=== PATIENT | female | born 1940 | race Caucasian/White ===

== ENCOUNTER 2018-09-25 09:54 | Emergency (ER) | payer MEDICARE ==
[~2018-09-25] VITALS: Ht 165.1 cm; Wt 59.0 kg
[2018-09-25 10:55] LABS: HEMATOCRIT 24.7 % (36.0-47.0); HEMOGLOBIN 7.9 g/dL (12.0-15.5); RED BLOOD COUNT 2.63 x10^6/uL (3.50-5.40); RED CELL DISTRIBUTION WIDTH 23.5 % (11.5-14.5); WHITE BLOOD COUNT 11.9 x10^3/uL (4.0-11.0)
[2018-09-25 11:02] LABS: CALCIUM 9.2 mg/dL (8.5-10.1); CREATININE 0.6 mg/dL (0.6-1.0); GFR 96.4
--- NOTE | 2018-09-25 11:29 | PHYS DOC ---
Past History Past Medical History: GERD Past Surgical History: Other Alcohol Use: None Drug Use: None Adult General Chief Complaint Chief Complaint: ABDOMINAL PAIN HPI HPI Patient is a 78 year old F who presents with abnormal labs. Helena has had a low hemoglobin of the past several months. She was found to have a hemoglobin of 7.1 prior to transfer from [facility]. She is a resident at [facility]. She has no current complaints. Review of Systems Review of Systems Constitutional: Denies fever or chills [] Eyes: Denies change in visual acuity, redness, or eye pain [] HENT: Denies nasal congestion or sore throat [] Respiratory: Denies cough or shortness of breath [] Cardiovascular: No additional information not addressed in HPI [] GI: Denies abdominal pain, nausea, vomiting, bloody stools or diarrhea [] : Denies dysuria or hematuria [] Musculoskeletal: Denies back pain or joint pain [] Integument: Denies rash or skin lesions [] Neurologic: Denies headache, focal weakness or sensory changes [] Endocrine: Denies polyuria or polydipsia [] All other systems were reviewed and found to be within normal limits, except as documented in this note. Family History Family History No pertinent family medical history was reported Current Medications Current Medications Current medications were reviewed Allergies Allergies Allergies Coded Allergies Type Severity Reaction Last Updated Verified cephalexin Allergy Intermediate 09/25/18 Yes hydroxychloroquine Allergy Intermediate 09/25/18 Yes cefazolin Allergy Mild 09/25/18 Yes soap Allergy Unknown 09/25/18 Yes Physical Exam Physical Exam Constitutional: Well developed, well nourished, no acute distress, non-toxic appearance. [] HENT: Normocephalic, atraumatic Eyes: EOMI, conjunctiva normal, no discharge. [] Neck: Normal range of motion, no tenderness, supple, no stridor. [] Cardiovascular:Heart rate regular rhythm, Lungs & Thorax: Bilateral breath sounds clear to auscultation [] Abdomen: Bowel sounds normal, soft, no tenderness, no masses, no pulsatile masses. [] Skin: Warm, dry, no erythema, no rash. [] Extremities: No tenderness, no cyanosis, no clubbing, ROM intact, no edema. 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 [] Psychologic: Affect normal, judgement normal, mood normal. [] Current Patient Data Vital Signs Vital Signs Date Time Temp Pulse Resp B/P (MAP) Pulse Ox O2 Delivery O2 Flow Rate FiO2 09/25/18 10:59 97.8 99 18 95 Room Air Lab Results Laboratory Tests Test 09/25/18 10:38 White Blood Count 11.9 x10^3/uL (4.0-11.0) H Red Blood Count 2.63 x10^6/uL (3.50-5.40) L Hemoglobin 7.9 g/dL (12.0-15.5) L Hematocrit 24.7 % (36.0-47.0) L Mean Corpuscular Volume 94 fL (79-100) Mean Corpuscular Hemoglobin 30 pg (25-35) Mean Corpuscular Hemoglobin Concent 32 g/dL (31-37) Red Cell Distribution Width 23.5 % (11.5-14.5) H Platelet Count 497 x10^3/uL (140-400) H Sodium Level 140 mmol/L (136-145) Potassium Level 4.0 mmol/L (3.5-5.1) Chloride Level 107 mmol/L (98-107) Carbon Dioxide Level 26 mmol/L (21-32) Anion Gap 7 (6-14) Blood Urea Nitrogen 40 mg/dL (7-20) H Creatinine 0.6 mg/dL (0.6-1.0) Estimated GFR (Cockcroft-Gault) 96.4 Glucose Level 92 mg/dL (70-99) Calcium Level 9.2 mg/dL (8.5-10.1) EKG EKG [] Radiology/Procedures Radiology/Procedures [] Course & Med Decision Making Course & Med Decision Making Pertinent Labs and Imaging studies reviewed. (See chart for details) Helena's doctor was contacted by phone. An outpatient order for blood transfusion was placed. She was discharged in stable condition. She plans to go to an outpatient program at today where she will have a transfusion. Dragon Disclaimer Dragon Disclaimer This electronic medical record was generated, in whole or in part, using a voice recognition dictation system. Departure Departure: Impression: Primary Impression: Anemia Disposition: 01 HOME, SELF-CARE Condition: STABLE Referrals: KRYSTAL QUARLES (PCP) Patient Instructions: Anemia, FAQs Additional Instructions: The [facility] in the emergency department for abnormal labs. No emergency medical condition is final history physical exam. She was found to be anemic. Her primary care doctor was contacted by phone. An outpatient order for a blood transfusion was placed. She was discharged in stable condition to her outpatient appointment for blood transfusion. She was also advised to follow-up with her primary care doctor as needed further management. Problem Qualifiers Primary Impression: Anemia Anemia type: unspecified type Qualified Codes: D64.9 - Anemia, unspecified DEAN SETH MD Sep 25, 2018 11:29
[2018-09-25 12:07] VITALS: BP 109/57
== END 2018-09-25 12:57 | disposition home or self-care (01) ==
LOC: ER 09:54
DX: D64.9 Anemia, unspecified (principal); K21.9 Gastro-esophageal reflux disease without esophagitis; Z88.1 Allergy status to other antibiotic agents; Z88.8 Allergy status to other drugs, medicaments and biological substances
CPT/HCPCS: 36415; 80048; 85027; 99283

== ENCOUNTER 2019-01-02 12:51 | Inpatient (IN) | payer MEDICARE, OTHER ==
[~2019-01-02] VITALS: Ht 149.9 cm; Wt 65.1 kg
[2019-01-02] MEDS ORDERED: IV NORMAL SALINE 1,000ML 1,000 ML IV SCH (13:06)
[2019-01-02 13:44] LABS: BASO % 0 % (0-3); EOS % 0 % (0-3); HEMATOCRIT 24.7 % (36.0-47.0); HEMOGLOBIN 7.9 g/dL (12.0-15.5); LYMPH # 1.4 x10^3/uL (1.0-4.8); LYMPH % 9 % (24-48); MEAN CORPUSCULAR HEMOGLOBIN 28 pg (25-35); MEAN CORPUSCULAR HGB CONC 32 g/dL (31-37); MEAN CORPUSCULAR VOLUME 88 fL (79-100); MONO # 1.8 x10^3/uL (0.0-1.1); MONO % 12 % (0-9); NEUT # 12.6 x10^3uL (1.8-7.7); NEUT % 79 % (31-73); PLATELET COUNT 408 x10^3/uL (140-400); RED BLOOD COUNT 2.81 x10^6/uL (3.50-5.40); RED CELL DISTRIBUTION WIDTH 16.5 % (11.5-14.5); WHITE BLOOD COUNT 15.9 x10^3/uL (4.0-11.0)
[2019-01-02] MEDS ORDERED: PIPERACILLIN/TAZOBACTAM 3.375 GM in IV NORMAL SALINE 50ML 50 ML IV ONE (13:45)
[2019-01-02] MEDS ORDERED: VANCOMYCIN 1 GM in IV NORMAL SALINE 250ML 250 ML IV ONE (13:45)
--- NOTE | 2019-01-02 13:51 | PHYS DOC ---
Past History Past Medical History: Anemia, Bronchitis, CHF, COPD, Depression, Diabetes, DVT, GERD, Kidney Stones, Pneumonia Past Surgical History: Other Alcohol Use: None Drug Use: None Adult General Chief Complaint Chief Complaint: FEVER HPI HPI Patient is a 78-year-old female who presents from assisted facility with report of fever, cough and shortness of breath. Patient reportedly had a temperature over 101 yesterday but patient was not up to coming to the hospital. Today, patient's symptoms had worsened and staff had spoken with patient's provider and patient sent to emergency room for further evaluation. Patient did have blood work and a chest x-ray yesterday. Patient indicates that she has been getting some shortness of breath and states that her cough is been productive of green sputum. She also reports to chills and sweats. She denies any chest pain, abdominal pain, nausea or vomiting. Patient states that nothing is improving her symptoms. Review of Systems Review of Systems Constitutional: Positive fever and chills [] Respiratory: Positive productive cough and shortness of breath [] Cardiovascular: No additional information not addressed in HPI [] GI: Denies abdominal pain, nausea, vomiting or diarrhea [] Neurologic: Denies headache, focal weakness or sensory changes [] All other systems were reviewed and found to be within normal limits, except as documented in this note. Current Medications Current Medications Current Medications Medications (Trade) Dose Ordered Sig/Indy Start Time Stop Time Status Last Admin Dose Admin Sodium Chloride 1,000 ml @ 100 mls/hr Q10H 01/02/19 13:06 01/02/19 23:05 01/02/19 13:06 100 MLS/HR Allergies Allergies Allergies Coded Allergies Type Severity Reaction Last Updated Verified cephalexin Allergy Intermediate 09/25/18 Yes hydroxychloroquine Allergy Intermediate 09/25/18 Yes cefazolin Allergy Mild 09/25/18 Yes soap Allergy Unknown 09/25/18 Yes Physical Exam Physical Exam Constitutional: Well developed, well nourished, no acute distress, non-toxic appearance. [] HENT: Normocephalic, atraumatic, bilateral external ears normal, oropharynx moist, no oral exudates, nose normal. [] Eyes: PERRLA, EOMI, conjunctiva normal, no discharge. [] Neck: Normal range of motion, no tenderness, supple, no stridor. [] Cardiovascular: Regular rate and rhythm[] Lungs & Thorax: There are fine rhonchi noted bilaterally, primarily in the left lung base to auscultation [] Abdomen: Bowel sounds normal, soft, no tenderness. [] Skin: Warm, dry, no erythema, no rash. [] Extremities: No cyanosis, no clubbing, ROM intact. AKA is noted right lower extremity. [] Neurologic: Awake and alert, no focal deficits noted. [] Current Patient Data Vital Signs Vital Signs Date Time Temp Pulse Resp B/P (MAP) Pulse Ox O2 Delivery O2 Flow Rate FiO2 01/02/19 12:55 98.5 112 33 93 Room Air Lab Results Laboratory Tests Test 01/02/19 13:30 White Blood Count 15.9 x10^3/uL (4.0-11.0) H Red Blood Count 2.81 x10^6/uL (3.50-5.40) L Hemoglobin 7.9 g/dL (12.0-15.5) L Hematocrit 24.7 % (36.0-47.0) L Mean Corpuscular Volume 88 fL (79-100) Mean Corpuscular Hemoglobin 28 pg (25-35) Mean Corpuscular Hemoglobin Concent 32 g/dL (31-37) Red Cell Distribution Width 16.5 % (11.5-14.5) H Platelet Count 408 x10^3/uL (140-400) H Neutrophils (%) (Auto) 79 % (31-73) H Lymphocytes (%) (Auto) 9 % (24-48) L Monocytes (%) (Auto) 12 % (0-9) H Eosinophils (%) (Auto) 0 % (0-3) Basophils (%) (Auto) 0 % (0-3) Neutrophils # (Auto) 12.6 x10^3uL (1.8-7.7) H Lymphocytes # (Auto) 1.4 x10^3/uL (1.0-4.8) Monocytes # (Auto) 1.8 x10^3/uL (0.0-1.1) H Eosinophils # (Auto) 0.0 x10^3/uL (0.0-0.7) Basophils # (Auto) 0.0 x10^3/uL (0.0-0.2) Platelet Estimate Pending EKG EKG [] Radiology/Procedures Radiology/Procedures [] Impressions: Chest x-ray demonstrates left lower lobe infiltrate Course & Med Decision Making Course & Med Decision Making Pertinent Labs and Imaging studies reviewed. (See chart for details) [] Dragon Disclaimer Dragon Disclaimer This electronic medical record was generated, in whole or in part, using a voice recognition dictation system. Departure Departure: Impression: Primary Impression: Facility-acquired pneumonia Additional Impression: Influenza Disposition: 09 ADMITTED INPATIENT Admitting Physician: Naomi Alcantara Condition: IMPROVED Referrals: KRYSTAL QUARLES (PCP) Problem Qualifiers LACY VILLEGAS Jr. DO January 02, 2019 13:51
[2019-01-02 13:59] LABS: ALBUMIN 2.5 g/dL (3.4-5.0); ALBUMIN/GLOBULIN RATIO 0.5 (1.0-1.7); CALCIUM 9.1 mg/dL (8.5-10.1); CREATININE 0.7 mg/dL (0.6-1.0); GFR 80.7; POTASSIUM 3.8 mmol/L (3.5-5.1); TOTAL BILIRUBIN 0.4 mg/dL (0.2-1.0); TOTAL PROTEIN 7.5 g/dL (6.4-8.2)
[2019-01-02] MEDS ORDERED: IV NORMAL SALINE 250ML 250 ML ONE ×2 (13:59→14:09)
[2019-01-02] MEDS ORDERED: VANCOMYCIN 1 GM VIAL. ONE (14:00)
[2019-01-02] MEDS ORDERED: PIPERACILLIN/TAZOBACTAM 3.375 GM VIAL IV ONE (14:00)
[2019-01-02] MEDS ORDERED: IV NORMAL SALINE 50ML 50 ML ONE (14:00)
[2019-01-02 14:20] LABS: % SEGS 74 % (35-66)
[2019-01-02 14:21] LABS: % BANDS 10 % (0-9); % BASOS 0 % (0-3); % EOS 0 % (0-5); % LYMPHS 6 % (24-48); % MONOS 10 % (0-10); ANISOCYTOSIS PRESENT; HYPOCHROMIA PRESENT; PLT ESTIMATE INCREASED (ADEQUATE)
[2019-01-02 14:30] LABS: INFLUENZA A PATIENT POSITIVE (NEGATIVE); INFLUENZA B PATIENT POSITIVE (NEGATIVE)
[2019-01-02] MEDS ORDERED: ACETAMINOPHEN 325 MG TABLET PO PRN (15:15)
[2019-01-02 15:28] LABS: BILIRUBIN,URINE NEG (NEG); CLARITY,URINE CLOUDY; COLOR,URINE YELLOW; GLUCOSE,URINE NEG (NEG)
[2019-01-02 15:29] LABS: BACTERIA,URINE FEW /HPF (0-FEW); NITRITE,URINE NEG (NEG); SQUAMOUS EPITHELIAL CELL,UR OCC /LPF; UROBILINOGEN,URINE 0.2 mg/dL (0.2 mg/dL)
[2019-01-02] MEDS ORDERED: OSELTAMIVIR 75 MG CAPSULE PO ONE (15:30)
[2019-01-02 15:52] VITALS: BP 99/65
[2019-01-02] MEDS: IPRATRPIUM/ALBUTEROL 0.5/2.5MG 3 ML NEBU. NEB SCH ×2 (16:18→20:38)
[2019-01-02] MEDS ORDERED: VANCOMYCIN 500 MG in IV NORMAL SALINE 100ML 100 ML IV ONE (16:30)
[2019-01-02] MEDS: VANCOMYCIN PER PHARMACY MC PRN (17:12)
--- NOTE | 2019-01-02 17:17 | NUR ---
Pharmacy Vancomycin Dosing Note S:Consulted to monitor and dose vancomycin started 01/02/19. O:YORDY CALLOWAY is a 78 year old F with HCAP, . Height: 4 feet, 11 inches Weight: 64.531287 kg [place] Body Weight: 43.20 Adjusted Body Weight: 51.60 Dosing Weight: Actual Other Antibiotics: ZOSYN 3.375GM IB Q8H LABS: Last BUN: 45 Last Creatinine: 0.7 Creatinine Clearance: 38.14 Last WBC: 15.9 Vancomycin Dosing: Loading Dose: 1500 mg x1 Dosing Weight: Actual Target Trough: 15-20 POSITIVE FOR INFLUENZA A & B, ON TAMIFLU A: Based on: Actual weight, renal function and indication P: 1. Begin Vancomycin 1000 mg IV q24h 2. Follow up Trough level on 01/04/19 at 1230 3. Pharmacy will continue to monitor, follow and adjust therapy as needed. ANDREA SHERIFF, 01/02/19 [id number]
--- NOTE | 2019-01-02 17:29 | HP ---
ADMIT DATE: 01/02/2019 HISTORY OF PRESENT ILLNESS: The patient is a 78-year-old female patient, a resident at [facility], who apparently was diagnosed yesterday with pneumonia and was confirmed by chest x-ray and she has also leukocytosis. Her white cell count was up to 19,000, however, the patient refused to come to the hospital. She also had fever, cough with greenish sputum and shortness of breath as her symptoms worsened, she agreed to come to the hospital, was evaluated in the Emergency Room and her lab work showed again that her white cell count was high at 15,900, normochromic normocytic anemia. Her lactic acid was only 1.6. She was found to be positive for influenza A and B. Her urinalysis showed that she has only 5-10 wbc's and very few bacteria. Her chest x-ray was done, but was not read; however, her chest x-ray done at the senior living showed that she has chronic interstitial lung disease with superimposed left lower infiltrate, but no evidence of congestive heart failure and therefore, the patient was admitted with sepsis, left lower lobe pneumonia and influenza A and B was put in isolation. She was treated with IV fluid and was started on Tamiflu as well as vancomycin and Zosyn for healthcare-associated pneumonia. PAST MEDICAL HISTORY: Significant for rheumatoid arthritis, pulmonary fibrosis. She does have acute osteomyelitis of her femur, status post right above knee amputation, type 2 diabetes, normochromic normocytic anemia of chronic disease, vitamin D deficiency. She is known to have heart failure, chronic obstructive pulmonary disease, gastroesophageal reflux disease, severe deforming rheumatoid arthritis, age-related osteoporosis. She is known to have chronic osteomyelitis of her left leg, nephrolithiasis, obstructive and reflux uropathy, oropharyngeal dysphagia and difficulty walking, lack of coordination. She also has history of venous thrombosis and embolism. She is wheelchair bound. PAST SURGICAL HISTORY: Significant for bilateral cataract extraction. She has also right above-knee amputation. She has left hand surgery, laser photocoagulation and cholecystectomy. ALLERGIES: SHE IS ALLERGIC TO CEFAZOLIN, CEPHALEXIN, HYDROCHLOROQUINE AND SOAP. MEDICATIONS: She is currently on following medications: She is on oxygen at 2 liters by nasal cannula. She has artificial tears 1 drop to both eyes 4 times a day, aspirin 81 mg once a day. She is on Biotene dry mouth moisturizing solution, artificial saliva give one spray by mouth every 4 hours. She is on bisacodyl tablets 5 mg daily, Chloraseptic, sore throat, give 5 sprays by mouth every 2 hours as needed, Colace 100 mg twice a day. She is on DuoNeb 0.5-2.5 mg 3 mL by nebulizer 4 times a day. She is on ferrous sulfate 325 mg twice a day, Maalox regular strength she gets 30 mL every 4 hours as needed, multivitamin 1 tablet once a day, prednisone 5 mg 1 tablet by mouth once a day, Pro-Stat 30 mL by mouth 3 times a day, Protonix 40 mg once a day, Senna 1 tablet daily, Sensipar tablet 30 mg for cinacalcet 1 tablet twice a day, Tylenol 650 mg every 4 hours, vitamin D3 give 2000 international units by mouth once a day. FAMILY HISTORY: She has 2 sisters, one lives around here and one in [place]. One brother who is still alive, but does not keep in touch with them. SOCIAL HISTORY: She is , has 2 sons. She has never smoked, does not drink alcohol or use recreational drugs. REVIEW OF SYSTEMS: As per history of present illness. PHYSICAL EXAMINATION: GENERAL: On arrival to the Emergency Room, she was pale, but no jaundice, cyanosis, or thyromegaly. No jugular venous distension. No limb edema. VITAL SIGNS: Her heart rate was 112, blood pressure was 99/65, temperature was 98.5, respiratory rate was 33 and oxygen saturation was 93% on room air. HEAD, EYES, EARS, NOSE AND THROAT: Showed normocephalic, atraumatic. NECK: Supple. HEART: Showed normal first and second heart sounds with no gallop, rub or murmur. CHEST: Clear to auscultation. No crepitation or rhonchi. ABDOMEN: Distended, soft, nontender. No guarding or rigidity. No organomegaly. All hernial orifice are intact. Bowel sounds normal. NEUROLOGIC: She is hard of hearing, otherwise all cranial nerves intact. She moves her all extremities, although she has severe deforming rheumatoid arthritis, more so on the right hand than left. She has right above-knee amputation. She has an indwelling Buckner catheter and she has what seems to be chronic osteomyelitis of her left leg, although I do not have any clear cut. There is no sinuses and this was based on the information face sheet from the senior living as she was not on any antibiotics for that. The patient seems to be mostly wheelchair bound. LABORATORY DATA: On arrival showed that her white cell count was 15,900, hemoglobin 7.9, hematocrit 24.7, MCV 88 and platelet count of 408,000 with normal manual differential. Her serum sodium was 136, potassium 3.8, chloride 102, bicarbonate 23, anion gap of 11, BUN 45, creatinine 0.7, estimated GFR was 80 mL. Her glucose was 115, lactic acid was 1.6, calcium was 9.1. Total bilirubin, AST, ALT, alkaline phosphatase were normal. Total protein was 7.5, albumin was 2.5. Her urinalysis showed the urine was yellow, clear, cloudy with a pH of 5.5, specific gravity of 1.015. There was small amount of protein. The urine was negative for glucose, ketones, small amount of blood, negative for nitrite and has a trace leukocyte esterase, 1-2 rbc's, 5-10 wbc's, very few bacteria. Her influenza A and B were positive. She had a chest x-ray, which confirmed that she has left lower lobe pneumonia and chronic pulmonary fibrosis. ASSESSMENT: This is a 78-year-old female patient with severe deforming rheumatoid arthritis, who was admitted with community-acquired pneumonia. She also was found positive for influenza A and B. She has chronic pulmonary fibrosis likely due to underlying rheumatoid arthritis. PLAN: My plan is to continue with Tamiflu, continue with IV vancomycin and Zosyn and continue with all her other medications. We will follow her closely on a daily basis and decide the further management according to her response. JAYY SANTOS MD DR: SHWETA/yg JOB#: [id number] / [id number]
--- NOTE | 2019-01-02 17:34 | NUR ---
NURSING NOTE ADMIT PT ADMIT FROM ED VIA EMS TO ROOM 107 FOR INFLUENZA AND PNEUMONIA FROM [facility]. PT STATES SHE HAS BEEN SOB AND COUGHING UP PHLEGM. PT PLACED ON 2L OF OXYGEN AT THIS TIME. PT HAS WOUNDS, SEE WOUND ASSESSMENT. PT SETTLED IN ROOM. PHYSICIAN AT BEDSIDE DURING ADMISSION. NO COMPLICATIONS. KAILYN GALLO.
--- NOTE | 2019-01-02 17:36 | NUR ---
NURSING NOTE CONSULT WOUND CARE ORDERS PLACED FOR WOUND CARE CONSULT. KAILYN GALLO.
[2019-01-02] MEDS: IV NORMAL SALINE 1,000ML 1,000 ML IV SCH (17:47)
[2019-01-02] MEDS ORDERED: BISACODYL TAB 5 MG TABLET.DR. PO PRN (18:00)
[2019-01-02] MEDS ORDERED: SALIVA STIMULANT AGENT 44ML SPRAY BOTTLE. MM PRN (18:00)
[2019-01-02] MEDS ORDERED: CHOL10003 PO (18:04)
[2019-01-02] MEDS ORDERED: FERR325T14 PO (18:04)
[2019-01-02] MEDS ORDERED: SALI44.3 MM (18:04)
[2019-01-02] MEDS ORDERED: DOCU-109 PO (18:04)
[2019-01-02] MEDS ORDERED: ACET325T9 PO (18:04)
[2019-01-02] MEDS ORDERED: DEXT15DR5 EACHEYE (18:04)
[2019-01-02] MEDS ORDERED: ASPI-630 PO (18:04)
[2019-01-02] MEDS ORDERED: PANT40TA3 PO (18:04)
[2019-01-02] MEDS ORDERED: PRED2.5T PO (18:04)
[2019-01-02] MEDS ORDERED: SENN-80 PO (18:04)
[2019-01-02] MEDS ORDERED: MULT-246 PO (18:04)
[2019-01-02] MEDS ORDERED: BISA5TAB4 PO (18:04)
--- NOTE | 2019-01-02 18:23 | NUR ---
NURSING NOTE CODE STATUS [facility] IS FAXING DPOA PAPERWORK. PT IS A DNR. KAILYN GALLO.
--- NOTE | 2019-01-02 18:45 | RAD ---
PORTABLE CHEST 1V History: Cough, congestion. No prior study for comparison. There is an oblique fracture of the right proximal humerus, probably not acute. There is also an apparent fracture deformity of the left proximal humerus. Degenerative changes of both shoulders with rotator cuff arthropathy. Low lung volumes. There is patchy infiltrates/edema in both lungs greatest in the left lung base. Aortic calcification. Heart size not definitely enlarged accounting for portable technique. No evidence of pneumothorax or large effusion but there may be a small left effusion. IMPRESSION: Bilateral infiltrates/edema in both lungs, but greatest in the left lung base. Proximal humeral fractures, likely not acute. Electronically signed by: Shar Golden MD (01/02/2019 6:42 PM) [facility]
[2019-01-02 19:13] VITALS: BP 93/54
[2019-01-02] MEDS: SENNOSIDES 8.6 MG TABLET PO SCH (21:00)
[2019-01-02] MEDS: PIPERACILLIN/TAZOBACTAM 3.375 GM in IV NORMAL SALINE 50ML 50 ML IV SCH (22:15)
[2019-01-02] MEDS: LACTOBACILLUS RHAMNOSUS GG 1 CAPSULE. PO SCH (22:16)
[2019-01-02] MEDS: POLYVINYL ALCOHOL 1.4% OPHTH SOLUTION 15ML BOTTLE. OU SCH (22:16)
[2019-01-02] MEDS: FERROUS SULFATE 325 MG TABLET. PO SCH (22:16)
[2019-01-02] MEDS: OSELTAMIVIR 75 MG CAPSULE PO SCH (22:16)
[2019-01-02] MEDS: ACETAMINOPHEN 325 MG TABLET PO PRN (22:16)
[2019-01-02 23:01] VITALS: BP 100/63
[2019-01-03] VITALS (9 sets, daily range): BP systolic 99–114; BP diastolic 48–65
--- NOTE | 2019-01-03 04:12 | NUR ---
NURSING: I HAVE REVIEWED AND AGREE WITH SN LAURIE'S ASSESSMENT DOCUMENTATION.
[2019-01-03] MEDS: IPRATRPIUM/ALBUTEROL 0.5/2.5MG 3 ML NEBU. NEB SCH ×4 (05:41→19:23)
[2019-01-03] MEDS: PIPERACILLIN/TAZOBACTAM 3.375 GM in IV NORMAL SALINE 50ML 50 ML IV SCH ×3 (05:58→23:09)
[2019-01-03] MEDS: IV NORMAL SALINE 1,000ML 1,000 ML IV SCH ×2 (06:00→11:55)
[2019-01-03 06:29] LABS: BASO % 0 % (0-3); EOS % 1 % (0-3); HEMATOCRIT 21.9 % (36.0-47.0); HEMOGLOBIN 7.1 g/dL (12.0-15.5); LYMPH % 21 % (24-48); MEAN CORPUSCULAR HEMOGLOBIN 29 pg (25-35); MEAN CORPUSCULAR HGB CONC 32 g/dL (31-37); MEAN CORPUSCULAR VOLUME 88 fL (79-100); MONO # 1.2 x10^3/uL (0.0-1.1); MONO % 13 % (0-9); NEUT # 6.1 x10^3uL (1.8-7.7); NEUT % 65 % (31-73); PLATELET COUNT 357 x10^3/uL (140-400); RED BLOOD COUNT 2.49 x10^6/uL (3.50-5.40); RED CELL DISTRIBUTION WIDTH 16.6 % (11.5-14.5); WHITE BLOOD COUNT 9.4 x10^3/uL (4.0-11.0)
[2019-01-03 06:59] LABS: ALBUMIN/GLOBULIN RATIO 0.5 (1.0-1.7); CALCIUM 8.9 mg/dL (8.5-10.1); CREATININE 0.6 mg/dL (0.6-1.0); GFR 96.4; POTASSIUM 3.8 mmol/L (3.5-5.1); TOTAL BILIRUBIN 0.5 mg/dL (0.2-1.0); TOTAL PROTEIN 6.4 g/dL (6.4-8.2)
[2019-01-03] MEDS: POLYVINYL ALCOHOL 1.4% OPHTH SOLUTION 15ML BOTTLE. OU SCH ×4 (08:16→21:00)
[2019-01-03] MEDS: ASPIRIN 81 MG TAB.CHEW PO SCH (08:16)
[2019-01-03] MEDS: LACTOBACILLUS RHAMNOSUS GG 1 CAPSULE. PO SCH ×2 (08:16→21:48)
[2019-01-03] MEDS: DOCUSATE SODIUM 100 MG CAPSULE PO SCH ×2 (08:16→08:33)
[2019-01-03] MEDS: FERROUS SULFATE 325 MG TABLET. PO SCH ×2 (08:18→21:48)
[2019-01-03] MEDS: MULTIVITAMIN with MINERAL TABLET. PO SCH (08:19)
[2019-01-03] MEDS: OSELTAMIVIR 75 MG CAPSULE PO SCH ×2 (08:19→21:48)
[2019-01-03] MEDS: CHOLECALCIFEROL (VITAMIN D3) 1,000 UNIT TABLET PO SCH (08:19)
[2019-01-03] MEDS: SENNOSIDES 8.6 MG TABLET PO SCH ×2 (08:19→21:00)
--- NOTE | 2019-01-03 08:43 | NUR ---
NURSING NOTE DIET BREAKFAST: ADD OATMEAL, CREAM OF WHEAT, YOGURT, APPLESAUCE, NECTAR THICK WATER AND APPLE JUICE. LUNCH: ADD TOMATO SOUP, CARROTS, JELLO, NECTAR THICK WATER AND APPLE JUICE. DINNER: ADD APPLE SAUCE, CREAM OF CHICKEN, JELLO, AND NECTAR THICK WATER AND APPLE JUICE.
[2019-01-03] MEDS ORDERED: predniSONE 5 MG TABLET PO SCH (09:00)
[2019-01-03] MEDS ORDERED: PANTOPRAZOLE 40 MG TABLET. PO SCH (09:00)
[2019-01-03] MEDS: VANCOMYCIN 1 GM in IV NORMAL SALINE 250ML 250 ML IV SCH (11:56)
[2019-01-03] MEDS: ACETAMINOPHEN 325 MG TABLET PO PRN ×2 (15:26→21:49)
[2019-01-03 15:28] LABS: HEMATOCRIT 20.6 % (36.0-47.0)
[2019-01-03 15:31] LABS: HEMOGLOBIN 6.7 g/dL (12.0-15.5)
--- NOTE | 2019-01-03 15:31 | NUR ---
NURSING NOTE CRITICAL LAB PT HGB 6.7. ORDERS OBTAINED [address] OF BLOOD PER DR SANTOS. KAILYN GALLO.
--- NOTE | 2019-01-03 16:00 | RAD ---
Left tibia and fibula, 2 views, 01/03/2019: HISTORY: Osteomyelitis The bony structures are demineralized. There are extensive soft tissue calcifications. These are predominantly subcutaneous, although extensive arterial calcifications are also evident. No fracture or destructive bony lesion is seen. There are degenerative changes at the knee joint and the ankle. IMPRESSION: 1. Demineralization. 2. No acute bony abnormality is detected. 3. Extensive soft tissue calcifications many of which are subcutaneous. This is a nonspecific finding but can be idiopathic or seen with various entities including dermatomyositis or chronic venous insufficiency. Electronically signed by: Cole Crawley MD (01/03/2019 3:58 PM) [facility]
[2019-01-03] MEDS: HYDROCORTISONE SOD SUCC/PF 100 MG/2 ML VIAL. IV SCH (23:09)
[2019-01-04] VITALS: BP 103/59
--- NOTE | 2019-01-04 00:02 | NUR ---
Blood transfusion started at 2021. Tubing primed with Normal Saline and then primed with blood. Transfusion started at 100ml/hr, patient monitored closely x15 minutes. No reaction noted, transfusion increased to 125ml/hr. Vital signs assessed @ 2037, 2137, and 2237; vital signs stable. Transfusion completed at 2301, patient tolerated transfusion well. One hour post transfusion vital signs assessed and stable.
[2019-01-04 04:41] VITALS: BP 105/57
[2019-01-04] MEDS: IPRATRPIUM/ALBUTEROL 0.5/2.5MG 3 ML NEBU. NEB SCH ×4 (04:45→20:00)
--- NOTE | 2019-01-04 05:47 | PN ---
DATE: 01/03/2019 SUBJECTIVE: The patient is resting, slightly propped up in bed, in no apparent respiratory distress. She definitely seems to be more comfortable than yesterday. On questioning her, she said that she is definitely feeling much better than yesterday. PHYSICAL EXAMINATION: GENERAL: When I examined her, she was pale. No jaundice, cyanosis, or thyromegaly. No jugular venous distension. No lower limb edema. VITAL SIGNS: Her heart rate was 101, blood pressure was 101/48, temperature was 99.4, respiratory rate was 22, and oxygen saturation was 97% on 1 liter of oxygen. HEAD, EYES, EARS, NOSE, AND THROAT: Normocephalic, atraumatic. NECK: Supple. HEART: Showed normal first and second sounds. No gallop, rub, or murmur. CHEST: Shows central trachea, equally reduced expansion, reduced air entry, vesicular sounds with bilateral early coarse inspiratory crackles. I could not appreciate any rhonchi. ABDOMEN: Distended, soft, nontender. NEUROLOGIC: She is sleepy, but arousable. All cranial nerves intact. She moves upper extremities to much good extent than lower extremities. She has right above-knee amputation. She has wounds on her left rico, questionable osteomyelitis as per jail notes. Her intake over the last 24 hours and output are incompletely recorded. LABORATORY DATA: Her lab work this morning showed her serum sodium to be 141, potassium 3.8, chloride 108, bicarbonate 24, anion gap of 9, BUN 30, creatinine 0.6, estimated GFR was 96 mL per minute. Her glucose was 82. Her lactic acid was only 1.6, calcium was 8.9. Total bilirubin, AST, ALT, alkaline phosphatase were normal. Total protein was 6.4, albumin 2. Her white cell count is down to 9400, hemoglobin 7.1, hematocrit 21.9, MCV 88, and platelet count of 257,000 with normal manual differential. Urinalysis showed the urine was yellow, cloudy with pH of 5.5, specific gravity 1.015. There was small amount of protein. The urine was negative for glucose, ketones, small amount of blood, negative for nitrite, negative bilirubin, and leukocyte esterase was trace of that. However, there are 1-2 RBCs, 5-10 WBCs, and very few bacteria. Her influenza A and B are negative. Her blood cultures still showed no growth after 24 hours. ASSESSMENT: 1. ____. 2. Influenza A and B. 3. Pulmonary fibrosis, likely due to underlying rheumatoid arthritis. 4. Severe deforming rheumatoid arthritis. 5. Chronic obstructive pulmonary disease. 6. She apparently has also oropharyngeal dysphagia. PLAN: My plan is to increase her steroids to stress dose. Continue the IV fluid. Continue with IV antibiotic. Continue Tamiflu. We will check her H and H, and if the hemoglobin is 7 or less than 7, we will transfuse 1 unit packed RBCs. I did also order an x-ray of her left tibia and fibula as it was not clear whether the patient has an infection there or in the right tibia and fibula that resulted in right above-knee amputation. JAYY SANTOS MD DR: SHWETA/yg JOB#: [id number] / [id number]
[2019-01-04] MEDS: PIPERACILLIN/TAZOBACTAM 3.375 GM in IV NORMAL SALINE 50ML 50 ML IV SCH ×3 (06:17→22:16)
[2019-01-04 06:20] LABS: HEMOGLOBIN 7.7 g/dL (12.0-15.5); MEAN CORPUSCULAR HEMOGLOBIN 28 pg (25-35); MEAN CORPUSCULAR HGB CONC 32 g/dL (31-37); MEAN CORPUSCULAR VOLUME 87 fL (79-100); PLATELET COUNT 362 x10^3/uL (140-400); RED BLOOD COUNT 2.75 x10^6/uL (3.50-5.40); RED CELL DISTRIBUTION WIDTH 17.2 % (11.5-14.5); WHITE BLOOD COUNT 9.2 x10^3/uL (4.0-11.0)
[2019-01-04 06:31] LABS: ALBUMIN 1.9 g/dL (3.4-5.0); ALBUMIN/GLOBULIN RATIO 0.4 (1.0-1.7); C REACTIVE PROTEIN 160.8 mg/L (0-3.3); CALCIUM 9.3 mg/dL (8.5-10.1); CREATININE 0.6 mg/dL (0.6-1.0); GFR 96.4; TOTAL BILIRUBIN 0.4 mg/dL (0.2-1.0); TOTAL PROTEIN 6.4 g/dL (6.4-8.2)
[2019-01-04] MEDS: ACETAMINOPHEN 325 MG TABLET PO PRN (06:33)
[2019-01-04 07:27] LABS: SEDIMENTATION RATE > 130 (0-25)
[2019-01-04] MEDS: HYDROCORTISONE SOD SUCC/PF 100 MG/2 ML VIAL. IV SCH ×2 (08:19→22:16)
[2019-01-04] MEDS: LANSOPRAZOLE 30 MG TAB.RAP.DR PO SCH (08:19)
[2019-01-04] MEDS: MULTIVITAMIN with MINERAL TABLET. PO SCH (08:20)
[2019-01-04] MEDS: CHOLECALCIFEROL (VITAMIN D3) 1,000 UNIT TABLET PO SCH (08:20)
[2019-01-04] MEDS: OSELTAMIVIR 75 MG CAPSULE PO SCH ×2 (08:20→22:17)
[2019-01-04] MEDS: ASPIRIN 81 MG TAB.CHEW PO SCH (08:20)
[2019-01-04] MEDS: FERROUS SULFATE 325 MG TABLET. PO SCH ×2 (08:20→22:17)
[2019-01-04] MEDS: LACTOBACILLUS RHAMNOSUS GG 1 CAPSULE. PO SCH ×2 (08:20→22:17)
[2019-01-04] MEDS: DOCUSATE SODIUM 100 MG CAPSULE PO SCH (08:23)
[2019-01-04] MEDS: SENNOSIDES 8.6 MG TABLET PO SCH ×2 (08:24→21:00)
[2019-01-04] MEDS: POLYVINYL ALCOHOL 1.4% OPHTH SOLUTION 15ML BOTTLE. OU SCH ×4 (08:38→21:50)
--- NOTE | 2019-01-04 09:33 | NUR ---
Wound Care Wound care consult for LLE and L buttock wounds. Pt has multiple small openings on anterior LLE that have mild odor and scant drainage and exposed bone. Cleansed area and painted with Betadine, covered with ABD and Kerlix. Recommend to change every other day. L buttock has stage III PU, packed with Aquacel Ag rope and covered with foam and Tegaderm. No other wounds noted on full skin inspection. WC will continue to follow for possible changes.
[2019-01-04] MEDS ORDERED: FUROSEMIDE 20 MG/2 ML VIAL IVP ONE (10:00)
[2019-01-04 11:19] VITALS: BP 109/62
[2019-01-04] MEDS: VANCOMYCIN 1 GM in IV NORMAL SALINE 250ML 250 ML IV SCH ×2 (13:00→13:25)
[2019-01-04 13:06] LABS: VANC TR 9.3 mcg/mL (10.0-20.0)
[2019-01-04] MEDS: VANCOMYCIN PER PHARMACY MC PRN (14:09)
--- NOTE | 2019-01-04 14:09 | NUR ---
Pharmacy Vancomycin Dosing Note S:Consulted to monitor and dose vancomycin started 01/02/19. O:YORDY CALLOWAY is a 78 year old F with HCAP Height: 4 feet, 11 inches Weight: 66.071649 kg [place] Body Weight: 43.20 Adjusted Body Weight: 51.60 Dosing Weight: Actual Other Antibiotics: ZOSYN 3.375GM IB Q8H LABS: Last BUN: 21 Last Creatinine: 0.6 Creatinine Clearance: 38 Last WBC: 9.2 GFR=96.4 Microbiology: Sputum culture growing gram positive cocci and gram negative rods Drug Levels: Last Trough level: 9.3 on 01/04/19 at 1230 Last dose given 01/03/19 at 1300 Vancomycin Dosing: Loading Dose: 1500 mg x1 Dosing Weight: Actual Target Trough: 15-20 POSITIVE FOR INFLUENZA A & B, ON TAMIFLU A: Based on the trough, we will change the frequency to q12hrs. P: 1. Change Vancomycin to 1000mg IV q12h 2. Follow up Trough level on 01/06/19 at 0030 3. Pharmacy will continue to monitor, follow and adjust therapy as needed. HEMANT HIGHTOWER RPH 01/04/19 [id number]
[2019-01-04 15:43] VITALS: BP 93/51
[2019-01-04] MEDS ORDERED: FUROSEMIDE 40 MG/4 ML VIAL IVP ONE (18:45)
[2019-01-04 19:01] VITALS: BP 105/58
[2019-01-04 22:39] VITALS: BP 90/46
[2019-01-05] MEDS: VANCOMYCIN 1 GM in IV NORMAL SALINE 250ML 250 ML IV SCH ×2 (01:07→13:22)
--- NOTE | 2019-01-05 01:40 | PN ---
DATE: 01/04/2019 SUBJECTIVE: A 78-year-old female in with pneumonia and influenza, both A and B. elevated white count of over approximately 16,000. The patient is still in some mild respiratory distress, although she seems to be improving in terms of her heart rate coming down and her temperature stabilizing. The patient is alert, has difficulty talking because of shortness of breath. OBJECTIVE: VITAL SIGNS: Blood pressure 93/51, respiratory rate 22, pulse 73, afebrile, presently on 2 liters at 98%. GENERAL: The patient is alert and oriented. LUNGS: Diminished throughout with marked rattling throughout, but clear. CARDIOVASCULAR: Tachycardic at times and then regular sinus rhythm. ABDOMEN: Protuberant, soft, apparently had a bowel movement yesterday. EXTREMITIES: No clubbing or cyanosis. Trace edema noted. The patient is arousable little bit more apparently from previous time. She has a right [id number] amputation as well. She has wounds on her left rico, questionable osteomyelitis per retirement. LABORATORY DATA: The patient's hemoglobin and hematocrit is 7.7 and 24. White count 9.2 down from 16. The patient's electrolytes are basically stable. She has a BNP of over 10,000. The patient on Tamiflu and Zosyn. Otherwise, as noted, the patient was alert. In any case, the patient's labs are improved as noted above. IMPRESSION: Pneumonia, acute respiratory failure, influenza A and B, sepsis, pulmonary fibrosis, likely underlying rheumatoid arthritis, possible congestive heart failure, acute on top of chronic congestive heart failure, chronic obstructive pulmonary disease, possible dysphagia, possible aspiration. PLAN: Continue with IV antibiotic therapy. May have to change her fluids since her BNP is so elevated and make further evaluation on her as indicated as we progress with these multiple medical issues. DEAN COATES MD DR: MICKEY/yg JOB#: [id number] / [id number]
[2019-01-05] MEDS: PIPERACILLIN/TAZOBACTAM 3.375 GM in IV NORMAL SALINE 50ML 50 ML IV SCH ×3 (05:07→21:14)
[2019-01-05] MEDS: IPRATRPIUM/ALBUTEROL 0.5/2.5MG 3 ML NEBU. NEB SCH ×4 (05:10→20:03)
[2019-01-05 05:41] VITALS: BP 110/64
[2019-01-05 05:46] LABS: BASO % 0 % (0-3); EOS % 0 % (0-3); HEMATOCRIT 23.9 % (36.0-47.0); LYMPH # 1.2 x10^3/uL (1.0-4.8); LYMPH % 16 % (24-48); MEAN CORPUSCULAR HEMOGLOBIN 29 pg (25-35); MEAN CORPUSCULAR HGB CONC 34 g/dL (31-37); MEAN CORPUSCULAR VOLUME 86 fL (79-100); MONO # 0.4 x10^3/uL (0.0-1.1); MONO % 6 % (0-9); NEUT # 5.8 x10^3uL (1.8-7.7); NEUT % 79 % (31-73); PLATELET COUNT 356 x10^3/uL (140-400); RED BLOOD COUNT 2.78 x10^6/uL (3.50-5.40); RED CELL DISTRIBUTION WIDTH 17.3 % (11.5-14.5); WHITE BLOOD COUNT 7.4 x10^3/uL (4.0-11.0)
[2019-01-05 05:54] LABS: CALCIUM 9.4 mg/dL (8.5-10.1); CREATININE 0.7 mg/dL (0.6-1.0); GFR 80.7; POTASSIUM 3.2 mmol/L (3.5-5.1)
[2019-01-05] MEDS: POLYVINYL ALCOHOL 1.4% OPHTH SOLUTION 15ML BOTTLE. OU SCH ×4 (09:00→20:32)
[2019-01-05] MEDS: DOCUSATE SODIUM 100 MG CAPSULE PO SCH (09:00)
[2019-01-05] MEDS: SENNOSIDES 8.6 MG TABLET PO SCH ×2 (09:00→18:51)
[2019-01-05] MEDS: CHOLECALCIFEROL (VITAMIN D3) 1,000 UNIT TABLET PO SCH (09:09)
[2019-01-05] MEDS: OSELTAMIVIR 75 MG CAPSULE PO SCH ×2 (09:09→20:31)
[2019-01-05] MEDS: ASPIRIN 81 MG TAB.CHEW PO SCH (09:09)
[2019-01-05] MEDS: MULTIVITAMIN with MINERAL TABLET. PO SCH (09:09)
[2019-01-05] MEDS: LACTOBACILLUS RHAMNOSUS GG 1 CAPSULE. PO SCH ×2 (09:09→20:31)
[2019-01-05] MEDS: HYDROCORTISONE SOD SUCC/PF 100 MG/2 ML VIAL. IV SCH ×2 (09:10→20:31)
[2019-01-05] MEDS: LANSOPRAZOLE 30 MG TAB.RAP.DR PO SCH (09:10)
[2019-01-05] MEDS: FERROUS SULFATE 325 MG TABLET. PO SCH ×2 (09:10→20:31)
[2019-01-05 11:00] VITALS: BP 98/51
[2019-01-05 15:12] VITALS: BP 106/54
[2019-01-05] MEDS ORDERED: ELECTROLYTE (NON-ICU) PROTOCOL MC PRN (18:30)
[2019-01-05 19:29] VITALS: BP 108/63
[2019-01-05] MEDS ORDERED: POTASSIUM CHLORIDE 8 MEQ TABLET.ER. PO ONE (20:15)
[2019-01-05] MEDS ORDERED: POTASSIUM CHLORIDE 20 MEQ/15 ML ORAL LIQUID. FT ONE (20:30)
[2019-01-05] MEDS ORDERED: POTASSIUM CHLORIDE 20 MEQ TABLET.ER. PO ONE (20:30)
[2019-01-05] MEDS ORDERED: methylPREDNISolone SOD SUCC PF 40 MG/ML VIAL. IV SCH (21:00)
--- NOTE | 2019-01-05 21:19 | NUR ---
Went over plan of care with patient, patient voiced understanding. Holding HS senna due to patient having constant stools, not liquid but soft. Patient is being turned q2 hours. Call light within reach. WCTM.
[2019-01-05 22:03] VITALS: BP 114/57
[2019-01-05 22:44] LABS: FECAL OB PT POSITIVE (NEG)
[2019-01-06] MEDS: VANCOMYCIN 1 GM in IV NORMAL SALINE 250ML 250 ML IV SCH (01:00)
[2019-01-06 01:11] LABS: VANC TR 21.3 mcg/mL (10.0-20.0)
--- NOTE | 2019-01-06 01:45 | PN ---
DATE: SUBJECTIVE: A 78-year-old female patient in with pneumonia and influenza, both A and B, elevated white count, severe respiratory distress, hypotension. Initial white count of over approximately 16,000. The patient states that she is feeling better overall and making fairly good progress as far as her overall age and underlying debilitating condition. The patient basically shows evidence of an elevated BNP of 10,000, low iron of 19, potassium is down and that all need to be rectified as well. The patient otherwise continues on her Tamiflu as well as other antibiotics including the vancomycin and Zosyn and continues to make good progress overall there. The patient in turn notes that she is feeling better. OBJECTIVE: VITAL SIGNS: Blood pressure 106/50, respiratory rate 22, pulse 80, afebrile, 2 liters at 97%. HEENT: The patient's head was atraumatic, normocephalic. Eyes: PERRLA without jaundice. LUNGS: Still coarse, but much improved, more movement of air than was previously the day before. CARDIOVASCULAR: Regular sinus rhythm, S1, S2, without murmur. ABDOMEN: Soft, nontender. EXTREMITIES: No clubbing, cyanosis, or edema. NEUROLOGIC: The patient seems to be a little bit more energetic. She has a right [id number] amputation and we will continue to be monitored there. As noted on the labs earlier, her hemoglobin has stayed up from the previous 6.7, is still around 8 and 23. She has iron deficiency as well as 19. Other body sources show MRSA screen, but apparently the fecal Hemoccult have been come back. We are using SCDs for DVT prophylaxis. Continue to monitor that. IMPRESSION: Sepsis, influenza B, acute respiratory distress secondary to pneumonia of unspecified etiology, chronic obstructive pulmonary disease secondary to infection, iron deficiency anemia. PLAN: The patient will continue with IV antibiotic therapy, Tamiflu and iron supplementation. The patient also has significant vascular calcification per x-ray. DEAN COATES MD DR: MICKEY/yg JOB#: [id number] / [id number]
[2019-01-06] MEDS: VANCOMYCIN PER PHARMACY MC PRN ×2 (03:27→14:34)
--- NOTE | 2019-01-06 03:29 | NUR ---
Pharmacy Vancomycin Dosing Note S:Consulted to monitor and dose vancomycin started 01/02/19. O:YORDY CALLOWAY is a 78 year old F with HCAP, . Height: 4 feet, 11 inches Weight: 65.876435 kg [place] Body Weight: 43.20 Adjusted Body Weight: 52.08 Dosing Weight: Actual Other Antibiotics: ZOSYN 3.375GM IB Q8H LABS: Last BUN: 22 Last Creatinine: 0.7 Creatinine Clearance: 38 Last WBC: 7.4 Last Procalcitonin: Tmax (past 24 hours): Microbiology: I/O: 2278/1300 Drug Levels: Last Trough level: 21.3 on 01/06/19 at 0045 Last dose given 01/05/19 at 1322 Vancomycin Dosing: Loading Dose: Dosing Weight: Actual Target Trough: 15-20 POSITIVE FOR INFLUENZA A & B, ON TAMIFLU A: Based on: Trough(H), Updated Actual Wt and Crcl P: 1. 01/06/19 0100 Vancomycin 1000 mg IV q12h HELD VANCOMYCIN DOSING 2. Follow up Trough level on 01/06/19 at 1300 3. Pharmacy will continue to monitor, follow and adjust therapy as needed. MACKENZIE DUDLEY RPH, 01/06/19 0329 Signed: 01/06/19 at 0332 by MACKENZIE DUDLEY RPH PHA
[2019-01-06] MEDS: IPRATRPIUM/ALBUTEROL 0.5/2.5MG 3 ML NEBU. NEB SCH ×4 (04:48→21:00)
[2019-01-06 05:23] VITALS: BP 143/67
[2019-01-06] MEDS: PIPERACILLIN/TAZOBACTAM 3.375 GM in IV NORMAL SALINE 50ML 50 ML IV SCH ×3 (06:00→21:24)
[2019-01-06 06:56] LABS: BASO % 0 % (0-3); EOS % 0 % (0-3); HEMATOCRIT 23.5 % (36.0-47.0); HEMOGLOBIN 7.6 g/dL (12.0-15.5); LYMPH # 1.3 x10^3/uL (1.0-4.8); LYMPH % 19 % (24-48); MEAN CORPUSCULAR HEMOGLOBIN 28 pg (25-35); MEAN CORPUSCULAR HGB CONC 33 g/dL (31-37); MEAN CORPUSCULAR VOLUME 86 fL (79-100); MONO # 0.7 x10^3/uL (0.0-1.1); MONO % 10 % (0-9); NEUT # 4.9 x10^3uL (1.8-7.7); NEUT % 71 % (31-73); PLATELET COUNT 406 x10^3/uL (140-400); RED BLOOD COUNT 2.73 x10^6/uL (3.50-5.40); RED CELL DISTRIBUTION WIDTH 17.6 % (11.5-14.5); WHITE BLOOD COUNT 6.9 x10^3/uL (4.0-11.0)
[2019-01-06 07:07] LABS: CALCIUM 9.5 mg/dL (8.5-10.1); CREATININE 0.6 mg/dL (0.6-1.0); GFR 96.4; POTASSIUM 3.3 mmol/L (3.5-5.1)
[2019-01-06] MEDS ORDERED: PANTOPRAZOLE 40 MG TABLET. PO SCH (07:30)
[2019-01-06 07:49] LABS: % BANDS 2 % (0-9); % BASOS 0 % (0-3); % EOS 0 % (0-5); % LYMPHS 23 % (24-48); % MONOS 2 % (0-10); % SEGS 73 % (35-66); ANISOCYTOSIS PRESENT; PLATELET CLUMP PRESENT; PLT ESTIMATE INCREASED (ADEQUATE)
[2019-01-06] MEDS ORDERED: FERROUS SULFATE 325 MG TABLET. PO SCH (08:00)
[2019-01-06] MEDS: DOCUSATE SODIUM 100 MG CAPSULE PO SCH (09:00)
[2019-01-06] MEDS: POLYVINYL ALCOHOL 1.4% OPHTH SOLUTION 15ML BOTTLE. OU SCH ×4 (09:00→20:09)
[2019-01-06] MEDS: SENNOSIDES 8.6 MG TABLET PO SCH ×2 (09:00→20:08)
[2019-01-06] MEDS: POTASSIUM CHLORIDE 20 MEQ/15 ML ORAL LIQUID. PO SCH ×2 (09:37→20:09)
[2019-01-06] MEDS: MULTIVITAMIN with MINERAL TABLET. PO SCH (09:37)
[2019-01-06] MEDS: OSELTAMIVIR 75 MG CAPSULE PO SCH ×2 (09:37→20:08)
[2019-01-06] MEDS: FERROUS SULFATE 325 MG TABLET. PO SCH ×2 (09:37→20:08)
[2019-01-06] MEDS: CHOLECALCIFEROL (VITAMIN D3) 1,000 UNIT TABLET PO SCH (09:38)
[2019-01-06] MEDS: HYDROCORTISONE SOD SUCC/PF 100 MG/2 ML VIAL. IV SCH ×2 (09:38→20:09)
[2019-01-06] MEDS: LACTOBACILLUS RHAMNOSUS GG 1 CAPSULE. PO SCH ×2 (09:38→20:08)
[2019-01-06] MEDS: ASPIRIN 81 MG TAB.CHEW PO SCH (09:38)
[2019-01-06] MEDS: LANSOPRAZOLE 30 MG TAB.RAP.DR PO SCH (09:38)
[2019-01-06 10:30] VITALS: BP 107/50
[2019-01-06 13:24] LABS: VANC TR 15.9 mcg/mL (10.0-20.0)
--- NOTE | 2019-01-06 14:37 | NUR ---
Pharmacy Vancomycin Dosing Note S:Consulted to monitor and dose vancomycin started 01/02/19. O:YORDY CALLOWAY is a 78 year old F with HCAP, . Height: 4 feet, 11 inches Weight: 65.995378 kg [place] Body Weight: 43.20 Adjusted Body Weight: 52.08 Dosing Weight: Actual Other Antibiotics: ZOSYN 3.375GM IV Q8H LABS: Last BUN: 20 Last Creatinine: 0.6 Creatinine Clearance: 38.65 Last WBC: 6.9 Drug Levels: Last Trough level: 15.9 on 01/06/19 at 1300 Last dose given 01/05/19 at 1322 Vancomycin Dosing: Loading Dose: 1500 mg x1 Dosing Weight: Actual Target Trough: 15-20 POSITIVE FOR INFLUENZA A & B, ON TAMIFLU A: Based on: Trough and renal function P: 1. Begin Vancomycin 750 mg IV q12h 2. Follow up Trough level on 01/07/19 at 1330 3. Pharmacy will continue to monitor, follow and adjust therapy as needed. ANDREA SHERIFF, 01/06/19 [id number]
[2019-01-06 15:56] VITALS: BP 121/64
[2019-01-06] MEDS: VANCOMYCIN 750 MG in IV NORMAL SALINE 250ML 250 ML IV SCH (17:06)
[2019-01-06] MEDS ORDERED: ELECTROLYTE (NON-ICU) PROTOCOL MC PRN (18:00)
[2019-01-06 18:44] VITALS: BP 104/74
[2019-01-06 18:50] LABS: CALCIUM 9.5 mg/dL (8.5-10.1); CREATININE 0.7 mg/dL (0.6-1.0); GFR 80.7; POTASSIUM 3.7 mmol/L (3.5-5.1)
[2019-01-06 23:05] VITALS: BP 105/72
[2019-01-07] MEDS: VANCOMYCIN 750 MG in IV NORMAL SALINE 250ML 250 ML IV SCH ×2 (01:38→13:58)
--- NOTE | 2019-01-07 02:11 | PN ---
DATE: 01/06/2019 SUBJECTIVE: The patient is a 78-year-old female who came in with both influenza A and B as well as pneumonia. She had an elevated white count of over 16,000 and the patient has gradually come down to about a white count of 7. Her hemoglobin has remained basically stable. She is on additional iron supplementation for such as well. The patient's sed rate was markedly elevated. Her potassium is still a little bit low at 3.3. She is on electrolyte replacement, but overall the patient otherwise seems to be resting fairly comfortably. OBJECTIVE: VITAL SIGNS: Blood pressure 120/60, respiratory rate 20, pulse 70, still running low-grade temperature of 99, oxygen saturation however on 1 liter at 96%. GENERAL: The patient overall is markedly improved. She is extremely hard of hearing. LUNGS: Diminished throughout, poor movement of air. CARDIOVASCULAR: S1, S2. LUNGS: Show some decreased breath sounds in the bases, probably some crackles, but other than that unremarkable. ABDOMEN: Soft, nontender. EXTREMITIES: No clubbing, cyanosis, nor edema. NEUROLOGIC: More alert, has better color to her overall. LABORATORY DATA: The patient in turn, sodium 144, potassium 3.3. Iron was low yesterday at 19. Hemoglobin 7.6, hematocrit 23 with white count of only approximately 7, so we continued on IV antibiotic therapy, gentle diuresis and make further evaluation on her as we go along. The patient's weight has been going up, so we will try to give her some additional Lasix and see if that does not provide some needed diuresis. IMPRESSION: Sepsis, influenza A and B, pneumonia of unspecified etiology, acute on top of chronic diastolic heart failure, pulmonary fibrosis, chronic obstructive pulmonary disease with acute exacerbation of her respiratory illness, dysphagia, iron deficiency anemia. Sputum just showed some Staph aureus and she continues on vancomycin, so I would imagine that is probably covering the Staph aureus that has been found in her sputum. DEAN COATES MD DR: MICKEY/yg JOB#: [id number] / [id number]
[2019-01-07] MEDS: IPRATRPIUM/ALBUTEROL 0.5/2.5MG 3 ML NEBU. NEB SCH ×4 (05:04→20:54)
[2019-01-07] MEDS: PIPERACILLIN/TAZOBACTAM 3.375 GM in IV NORMAL SALINE 50ML 50 ML IV SCH (05:07)
[2019-01-07 06:07] VITALS: BP 120/66
[2019-01-07] MEDS: FERROUS SULFATE 325 MG TABLET. PO SCH ×2 (07:55→21:00)
[2019-01-07] MEDS: ASPIRIN 81 MG TAB.CHEW PO SCH (07:55)
[2019-01-07] MEDS: LANSOPRAZOLE 30 MG TAB.RAP.DR PO SCH (07:55)
[2019-01-07] MEDS: OSELTAMIVIR 75 MG CAPSULE PO SCH (07:55)
[2019-01-07] MEDS: MULTIVITAMIN with MINERAL TABLET. PO SCH (07:55)
[2019-01-07] MEDS: LACTOBACILLUS RHAMNOSUS GG 1 CAPSULE. PO SCH ×2 (07:55→20:59)
[2019-01-07] MEDS: FUROSEMIDE 40 MG TABLET PO SCH (07:55)
[2019-01-07] MEDS: POTASSIUM CHLORIDE 20 MEQ/15 ML ORAL LIQUID. PO SCH ×2 (07:56→20:59)
[2019-01-07] MEDS: CHOLECALCIFEROL (VITAMIN D3) 1,000 UNIT TABLET PO SCH (07:56)
[2019-01-07] MEDS: SENNOSIDES 8.6 MG TABLET PO SCH ×2 (07:57→21:00)
[2019-01-07] MEDS: HYDROCORTISONE SOD SUCC/PF 100 MG/2 ML VIAL. IV SCH (07:57)
[2019-01-07] MEDS: DOCUSATE SODIUM 100 MG CAPSULE PO SCH (07:57)
--- NOTE | 2019-01-07 08:35 | NUR ---
patient has + influenza swab, requires droplet precautions until five days of treatment and 24 hours without symptoms whichever is longer.
[2019-01-07 09:02] LABS: BASO % 0 % (0-3); EOS % 0 % (0-3); HEMATOCRIT 24.9 % (36.0-47.0); HEMOGLOBIN 8.1 g/dL (12.0-15.5); LYMPH # 2.1 x10^3/uL (1.0-4.8); LYMPH % 21 % (24-48); MEAN CORPUSCULAR HEMOGLOBIN 28 pg (25-35); MEAN CORPUSCULAR HGB CONC 32 g/dL (31-37); MEAN CORPUSCULAR VOLUME 86 fL (79-100); MONO % 10 % (0-9); NEUT % 69 % (31-73); PLATELET COUNT 475 x10^3/uL (140-400); RED BLOOD COUNT 2.89 x10^6/uL (3.50-5.40); RED CELL DISTRIBUTION WIDTH 17.4 % (11.5-14.5); WHITE BLOOD COUNT 10.1 x10^3/uL (4.0-11.0)
[2019-01-07 09:11] LABS: CALCIUM 9.9 mg/dL (8.5-10.1); CREATININE 0.6 mg/dL (0.6-1.0); GFR 96.4; POTASSIUM 4.1 mmol/L (3.5-5.1)
[2019-01-07] MEDS: POLYVINYL ALCOHOL 1.4% OPHTH SOLUTION 15ML BOTTLE. OU SCH ×4 (09:19→21:00)
[2019-01-07 10:36] VITALS: BP 129/67
[2019-01-07 13:44] LABS: VANC TR 18.9 mcg/mL (10.0-20.0)
[2019-01-07 14:45] VITALS: BP 129/6
[2019-01-07] MEDS: VANCOMYCIN PER PHARMACY MC PRN (16:20)
--- NOTE | 2019-01-07 16:22 | NUR ---
Pharmacy Vancomycin Dosing Note S:Consulted to monitor and dose vancomycin started 01/02/19. O:YORDY CALLOWAY is a 78 year old F with HCAP Height: 4 feet, 11 inches Weight: 66.868500 kg [place] Body Weight: 43.20 Adjusted Body Weight: 52.48 Dosing Weight: Actual Other Antibiotics: AZITHROMYCIN LABS: Last BUN: 17 Last Creatinine: 0.6 Creatinine Clearance: 37.8 Last WBC: 10.1 Drug Levels: Last Trough level: 18.9 on 01/07/19 at 1300 Last dose given 01/07/19 at 0200 Vancomycin Dosing: Loading Dose: 1500 mg x1 Dosing Weight: Actual Target Trough: 15-20 POSITIVE FOR INFLUENZA A & B, ON TAMIFLU A: Based on today's trough, continue the same dose and frequency. P: 1. Continue Vancomycin 750 mg IV q12h 2. Follow up trough level in 5 days or as indicated. 3. Pharmacy will continue to monitor, follow and adjust therapy as needed. HEMANT HIGHTOWER, [facility] 01/07/19 [id number]
[2019-01-07 19:57] VITALS: BP 110/55
[2019-01-07] MEDS ORDERED: AZITHROMYCIN 200 MG/5 ML ORAL.SUSP. PO SCH (21:00)
[2019-01-07] MEDS: ASCORBIC ACID 500 MG TABLET PO SCH (21:00)
[2019-01-07 23:15] VITALS: BP 105/70
--- NOTE | 2019-01-08 01:41 | PN ---
DATE: 01/07/2019 SUBJECTIVE: The patient is resting, slightly propped up in bed, in no apparent distress. She is awake, alert and definitely much improved, not as tachypneic, able to finish a sentence without difficulty. PHYSICAL EXAMINATION: GENERAL: When I examined her, she looked pale, but no jaundice, cyanosis, or thyromegaly. No jugular venous distension. No lower limb edema. VITAL SIGNS: Her heart rate was 74, blood pressure was 129/67, temperature was 97.8, respiratory rate 22 and oxygen saturation was 97% on 2 liters of oxygen. HEAD, EYES, EARS, NOSE AND THROAT: Showed normocephalic, atraumatic. NECK: Supple. HEART: Showed normal first and second heart sounds. No gallop, rub or murmur. CHEST: Shows central trachea, equal bilateral expansion air entry, vesicular breath sounds. No crepitation. She has coarse early inspiratory crackles bilaterally posteriorly. I could not appreciate any rhonchi. ABDOMEN: Distended, soft, nontender. NEUROLOGIC: She is definitely more awake, alert, responding appropriately. All her cranial nerves intact. She is able to move her left upper extremity to much good extent than her right upper extremity. She has right above knee amputation. She is mostly bed bound. Her intake over the last 24 hours was 1200, output was 1150. LABORATORY DATA: As of this morning, her white cell count is 10,000, hemoglobin 8.1, hematocrit 24.9, MCV 86 and platelet count of 475,000 with normal manual differential. Her chemistry showed a serum sodium 143, potassium 4.1, chloride 111, bicarbonate 25, anion gap of 7, BUN 17, creatinine 0.6. Estimated GFR was 96 mL per minute. Her glucose was 91, calcium was 9.9. Her serum iron, TIBC and iron saturation are all low consistent with anemia of chronic disease. Her urine culture was negative. Blood cultures showed no growth after 5 days and her sputum culture has grown methicillin-resistant Staphylococcus aureus. The bacteria is sensitive to clindamycin, erythromycin. Bacteria is sensitive to all antibiotics. PLAN: My plan is to discontinue her hydrocortisone and switch her back to oral steroids, discontinue piperacillin, tazobactam and continue with vancomycin. We will probably switch her to oral antibiotic and can be discharged back to [facility] tomorrow. JAYY SANTOS MD DR: Clifford JOB#: [id number] / [id number]
[2019-01-08] MEDS: VANCOMYCIN 750 MG in IV NORMAL SALINE 250ML 250 ML IV SCH (02:16)
[2019-01-08 05:31] VITALS: BP 111/60
[2019-01-08] MEDS: IPRATRPIUM/ALBUTEROL 0.5/2.5MG 3 ML NEBU. NEB SCH ×2 (05:31→10:00)
[2019-01-08] MEDS: MULTIVITAMIN with MINERAL TABLET. PO SCH (08:42)
[2019-01-08] MEDS: FUROSEMIDE 40 MG TABLET PO SCH (08:42)
[2019-01-08] MEDS: LANSOPRAZOLE 30 MG TAB.RAP.DR PO SCH (08:42)
[2019-01-08] MEDS: POLYVINYL ALCOHOL 1.4% OPHTH SOLUTION 15ML BOTTLE. OU SCH (08:42)
[2019-01-08] MEDS: DOCUSATE SODIUM 100 MG CAPSULE PO SCH (08:42)
[2019-01-08] MEDS: LACTOBACILLUS RHAMNOSUS GG 1 CAPSULE. PO SCH (08:42)
[2019-01-08] MEDS: ASCORBIC ACID 500 MG TABLET PO SCH (08:42)
[2019-01-08] MEDS: FERROUS SULFATE 325 MG TABLET. PO SCH (08:42)
[2019-01-08] MEDS: CHOLECALCIFEROL (VITAMIN D3) 1,000 UNIT TABLET PO SCH (08:42)
[2019-01-08] MEDS: ASPIRIN 81 MG TAB.CHEW PO SCH (08:42)
[2019-01-08] MEDS: SENNOSIDES 8.6 MG TABLET PO SCH (08:42)
[2019-01-08] MEDS: POTASSIUM CHLORIDE 20 MEQ/15 ML ORAL LIQUID. PO SCH (08:42)
[2019-01-08] MEDS ORDERED: predniSONE 20 MG TABLET PO SCH (09:00)
[2019-01-08 11:26] VITALS: BP 114/72
[2019-01-08] MEDS ORDERED: SULF1TAB24 PO (11:35)
--- NOTE | 2019-01-08 13:43 | NUR ---
NSG NOTE; DISCHARGE REPORT CALLED TO [facility] AT [facility] PAPER COPY OF CHART INCLUDING MED REC AND RX X2 SENT WITH PT DISCHARGE TO [facility]ARE AT 1333 VIA W/C [facility] BY TRANSPORT PERSONNEL
--- NOTE | 2019-01-08 16:03 | DS ---
DATE OF DISCHARGE: 01/08/2019 HOSPITAL COURSE: The patient is a 78-year-old female patient, a resident at [facility], who was admitted on 01/02/2019 with worsening shortness of breath, fever, cough with greenish sputum [facility]. Her white cell count was 19,000. Initially, the patient refused to come to the hospital; however, as her symptoms worsened, she agreed and was evaluated in our Emergency Room where she was found again to have fever and her influenza A and B was positive. She was found to have also pneumonia and was started on healthcare-associated protocol with treated to treatment with both vancomycin and Zosyn as well as Tamiflu. Her blood cultures were negative; however, sputum culture has grown methicillin-sensitive Staph aureus and sensitive to almost all antibiotics. She did very well, has had no more shortness of breath. No cough or phlegm. She was afebrile and did have anemia with a hemoglobin on arrival was only 6.7 for which she received 1 unit of packed RBCs and as she remained hemodynamically stable and afebrile with normal white cell count, a decision was made to discharge her back to [facility] to complete that course of treatment as an outpatient with oral antibiotic. PHYSICAL EXAMINATION: GENERAL: When I saw her today, she was resting slightly propped up in bed, in no apparent respiratory distress. She was pale, but no jaundice or cyanosis. No lymphadenopathy, no thyromegaly. No jugular venous distension. No limb edema. VITAL SIGNS: Her heart rate was 82, blood pressure was 110/60, temperature was 97.4, respiratory rate 20, and oxygen saturation was 95% on room air. HEAD, EYES, EARS, NOSE AND THROAT: Showed she is normocephalic, atraumatic. NECK: Supple with no lymphadenopathy, no thyromegaly. No jugular venous distention. No limb edema. No audible bruit. HEART: Showed normal first and second heart sounds. No gallop, rub or murmur. CHEST: Shows central trachea, equal bilateral chest expansion, air entry, vesicular sounds with early coarse inspiratory crackles consistent with pulmonary fibrosis. ABDOMEN: Markedly distended, soft, nontender. No guarding or rigidity. No organomegaly. All hernial orifices intact. Bowel sounds normal. NEUROLOGIC: She was hard of hearing, but otherwise, all her cranial nerves are intact. She moves extremities without difficulty. She has right above knee amputation. She is mostly bed bound. Her intake over the last 24 hours was 1400 and output was 1100. LABORATORY DATA: As of this morning, her white cell count was 10,000, hemoglobin 8, hematocrit 24, MCV 86 and platelet count 475,000. Her chemistry showed a serum sodium 143, potassium 4.1, chloride 100, bicarbonate 25, anion gap of 7, BUN 17, creatinine 0.6, estimated GFR was 96 mL per minute. Her glucose was 91, calcium was 9.9. Her serum iron, TIBC and iron saturation are all extremely low consistent with anemia of chronic disease. However, her vitamin B12 was 820 pg/mL. Her influenza A and B were both positive. Her vancomycin trough level was 18.9 and her stool for occult blood was positive. DISCHARGE MEDICATIONS: She was discharged back to [facility] to continue on Bactrim-DS in the liquid form 20 mL twice a day for 7 more days and also on a tapering course of steroids in the form of prednisone 20 mg once a day for 3 days, 15 mg once a day for 3 days, 10 mg once a day for 3 days and eventually on 5 mg indefinitely. She was also discharged on Tylenol 650 mg every 4 hours as needed, aspirin 81 mg once a day, Bisacodyl 5 mg daily p.r.n. for constipation, cholecalciferol 2000 international unit once a day. She is on artificial tears 1 drop to both eyes 4 times a day, Colace 100 mg twice a day, ferrous sulfate 325 mg twice a day, multivitamin 1 tablet once a day, Protonix 40 mg once a day, prednisone 5 mg daily, saliva stimulant for Biotin moisturizing mouth one spray as needed and senna 8.6 mg twice a day for constipation. FINAL DISCHARGE DIAGNOSES: 1. Influenza A and B. 2. Healthcare-associated pneumonia with growth of methicillin-sensitive Staphylococcus aureus. 3. 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 4. Severe deforming rheumatoid arthritis. 5. Chronic obstructive pulmonary disease. 6. Oropharyngeal dysphagia. JAYY SANTOS MD DR: SHWETA/yg JOB#: [id number] / [id number]
== END 2019-01-08 13:33 | DRG 871 ==
LOC: ER 12:51 → 1 SOUTH 15:04
PROVIDERS: ADMIT Internal Medicine; ATTEND Internal Medicine
PROC: 30233N1 Transfusion of Nonautologous Red Blood Cells into Peripheral Vein, Percutaneous Approach (ICD-10-PCS; principal; 2019-01-03)
DX: A41.9 Sepsis, unspecified organism (principal); I50.33 Acute on chronic diastolic (congestive) heart failure; J96.00 Acute respiratory failure, unspecified whether with hypoxia or hypercapnia; J10.08 Influenza due to other identified influenza virus with other specified pneumonia; J44.0 Chronic obstructive pulmonary disease with (acute) lower respiratory infection; J44.1 Chronic obstructive pulmonary disease with (acute) exacerbation; M86.60 Other chronic osteomyelitis, unspecified site; F32.9 Major depressive disorder, single episode, unspecified; N13.9 Obstructive and reflux uropathy, unspecified; B95.61 Methicillin susceptible Staphylococcus aureus infection as the cause of diseases classified elsewhere; D50.9 Iron deficiency anemia, unspecified; D63.8 Anemia in other chronic diseases classified elsewhere; E11.9 Type 2 diabetes mellitus without complications; J84.10 Pulmonary fibrosis, unspecified; K21.9 Gastro-esophageal reflux disease without esophagitis; M06.9 Rheumatoid arthritis, unspecified; M81.0 Age-related osteoporosis without current pathological fracture; R13.12 Dysphagia, oropharyngeal phase; E55.9 Vitamin D deficiency, unspecified; Y95 Nosocomial condition; Z86.718 Personal history of other venous thrombosis and embolism; Z87.442 Personal history of urinary calculi; Z89.611 Acquired absence of right leg above knee; Z98.41 Cataract extraction status, right eye; Z98.42 Cataract extraction status, left eye; Z99.3 Dependence on wheelchair; Z88.1 Allergy status to other antibiotic agents; Z88.8 Allergy status to other drugs, medicaments and biological substances
CPT/HCPCS: 36415; 51702; 71045; 73590; 80048; 80053; 80202; 81001; 82274; 82607; 82947; 83540; 83550; 83605; 83880; 85007; 85014; 85018; 85025; 85027; 85651; 86140; 86850; 86900; 86901; 86920; 87040; 87070; 87086; 87186; 87205; 87641; 87804; 94640; 96365; 96366; 96368; J1940; J2543; J3370; J7050; J7512; J7620; P9016; 99285-25; J7030

== ENCOUNTER 2019-04-17 19:59 | Emergency (ER) | payer MEDICARE, MEDICAID ==
[~2019-04-17] VITALS: Ht 149.9 cm; Wt 66.4 kg
[~2019-04-17 19:59] MED LIST: ACET325T9 PO; ASPI-630 PO; BISA5TAB4 PO; CHOL10003 PO; DEXT15DR5 EACHEYE; DOCU-109 PO; FERR325T14 PO; MULT-246 PO; PANT40TA3 PO; PRED2.5T PO; SALI44.3 MM; SENN-80 PO; SULF1TAB24 PO
--- NOTE | 2019-04-17 20:09 | ED.ADGEN ---
Past History Past Medical History: Anemia, Bronchitis, CHF, COPD, Depression, Diabetes, DVT, GERD, Kidney Stones, Pneumonia Past Surgical History: Other Alcohol Use: None Drug Use: None Adult General Chief Complaint Chief Complaint ".. I don't know..".." I ve been running a fever... some cough with green sputum..."... " I just feeling really sick...." HPI HPI Patient is a 78 year old female who presents with above hx and complaints. Pt. a resident of [facility] since 09/18/2017. Pt. normally follows with Dr. Gayle Quarles. Pt. poorly has developed fever and cough with productive sputum. Patient has history of multiple medical issues, acute respiratory infections, anemia, kidney stones, gastroesophageal reflux, hypoxemia, long-term use of anticoagulants for DVT, muscle weakness, osteoarthritis, DVTs, pulmonary fibrosis, diabetes, decubitus buttocks, weakness, osteoporosis, rheumatoid arthritis, COPD, fascia, insomnia, depression, osteomyelitis, urinary tract infections, recurrent pneumonia, vitamin D deficiency, dis coordination, amputation right leg [id number]., Review of Systems Review of Systems Constitutional: complaints of fever and chills [] Eyes: Denies change in visual acuity, redness, or eye pain [] HENT: Denies nasal congestion or sore throat [] Respiratory: Complaints of cough, productive sputum and shortness of breath [] Cardiovascular: No additional information not addressed in HPI [] GI: Epigastric abdominal pain, nausea. Denies vomiting, bloody stools or diarrhea [] : Denies dysuria or hematuria [] Musculoskeletal: Complaints of chronic pain- rheumatoid Integument: Denies rash or skin lesions [] Neurologic: Denies headache, focal weakness or sensory changes [] Endocrine: Denies polyuria or polydipsia [] All other systems were reviewed and found to be within normal limits, except as documented in this note. Family History Family History Non- contributory Current Medications Current Medications Current Medications Medications (Trade) Dose Ordered Sig/Indy Start Time Stop Time Status Last Admin Dose Admin Acetaminophen (Tylenol) 1,000 mg 1X ONCE 04/17/19 22:45 04/17/19 22:46 DC 04/17/19 23:06 1,000 MG Enoxaparin Sodium (Lovenox 60mg Syringe) 60 mg 1X ONCE 04/17/19 23:30 04/17/19 23:31 DC Furosemide (Lasix) 40 mg 1X ONCE 04/17/19 22:45 04/17/19 22:46 DC 04/18/19 01:05 40 MG Iohexol (Omnipaque 240 Mg/ml) 30 ml 1X ONCE 04/17/19 23:30 04/17/19 23:31 DC 04/17/19 23:49 30 ML Iohexol (Omnipaque 350 Mg/ml) 100 ml 1X ONCE 04/17/19 23:30 04/17/19 23:31 DC 04/17/19 23:49 100 ML Lactated Ringer's 1,000 ml @ 2,000 mls/hr 1X ONCE 04/17/19 22:30 04/17/19 22:59 DC 04/18/19 01:05 2,000 MLS/HR Levofloxacin/ Dextrose 100 ml @ 100 mls/hr 1X ONCE 04/17/19 21:15 04/17/19 22:14 DC 04/17/19 22:01 100 MLS/HR Methylprednisolone Sodium Succinate (SOLU-Medrol 125MG VIAL) 125 mg 1X ONCE 04/18/19 00:00 04/18/19 00:01 DC Sodium Chloride 250 ml @ As Directed STK-MED ONCE 04/17/19 21:15 04/17/19 21:15 DC Vancomycin HCl (Vancomycin) 1 gm STK-MED ONCE 04/17/19 21:15 04/17/19 21:16 DC Vancomycin HCl 1 gm/Sodium Chloride 250 ml @ 250 mls/hr 1X ONCE 04/17/19 21:30 04/17/19 22:29 DC 04/17/19 23:03 250 MLS/HR See [facility] Allergies Allergies Allergies Coded Allergies Type Severity Reaction Last Updated Verified cephalexin Allergy Intermediate 09/25/18 Yes hydroxychloroquine Allergy Intermediate 09/25/18 Yes cefazolin Allergy Mild 09/25/18 Yes soap Allergy Unknown 09/25/18 Yes Physical Exam Physical Exam Constitutional: in moderate acute distress, chronically ill in appearance. [] HENT: Normocephalic, atraumatic, bilateral external ears normal, oropharynx dry, no oral exudates, nose normal. [] Eyes: PERRLA, EOMI, conjunctiva normal, no discharge. [] Neck: Limited range of motion, no tenderness, supple, no stridor. [] Kyphosis Cardiovascular: Tachycardia Heart rate regular rhythm, no murmur [] PMI to Lt. Lungs & Thorax: Bilateral breath sounds with rhonchi, wheezes, rales through out on auscultation [] Abdomen: Bowel sounds hyperactive, soft, epigastric tenderness, no masses, no pulsatile masses. Old surgery scars Skin: Warm, dry, no erythema, no rash. Poor turgor. Back: Lumbar tenderness, no CVA tenderness. [] Extremities: hand tenderness, , some clubbing, limited range of motion, no edema. [] Arthritic changes. Severe ulnar deviation hands. Above the knee amputation on Rt. Lower Lt atrophy. Neurologic: Alert and oriented X 3, generalized motor weakness, decreased distal sensory . Psychologic: Affect anxious, judgement normal, mood depressed. Current Patient Data Vital Signs Vital Signs Date Time Temp Pulse Resp B/P (MAP) Pulse Ox O2 Delivery O2 Flow Rate FiO2 04/17/19 21:53 103.5 Lab Results Laboratory Tests Test 04/17/19 20:56 04/17/19 21:54 White Blood Count 13.3 x10^3/uL (4.0-11.0) H Red Blood Count 2.80 x10^6/uL (3.50-5.40) L Hemoglobin 8.6 g/dL (12.0-15.5) L Hematocrit 26.8 % (36.0-47.0) L Mean Corpuscular Volume 96 fL (79-100) Mean Corpuscular Hemoglobin 31 pg (25-35) Mean Corpuscular Hemoglobin Concent 32 g/dL (31-37) Red Cell Distribution Width 17.8 % (11.5-14.5) H Platelet Count 490 x10^3/uL (140-400) H Neutrophils (%) (Auto) 92 % (31-73) H Lymphocytes (%) (Auto) 6 % (24-48) L Monocytes (%) (Auto) 1 % (0-9) Eosinophils (%) (Auto) 1 % (0-3) Basophils (%) (Auto) 0 % (0-3) Neutrophils # (Auto) 12.2 x10^3uL (1.8-7.7) H Lymphocytes # (Auto) 0.8 x10^3/uL (1.0-4.8) L Monocytes # (Auto) 0.2 x10^3/uL (0.0-1.1) Eosinophils # (Auto) 0.1 x10^3/uL (0.0-0.7) Basophils # (Auto) 0.0 x10^3/uL (0.0-0.2) Erythrocyte Sedimentation Rate 111 (0-25) H Prothrombin Time 11.0 SEC (9.4-11.4) Prothrombin Time INR 1.1 (0.9-1.1) Activated Partial Thromboplast Time 26 SEC (23-33) D-Dimer (Allyson) 5.29 mg/L (0.00-0.50) H Sodium Level 140 mmol/L (136-145) Potassium Level 4.6 mmol/L (3.5-5.1) Chloride Level 107 mmol/L (98-107) Carbon Dioxide Level 22 mmol/L (21-32) Anion Gap 11 (6-14) Blood Urea Nitrogen 41 mg/dL (7-20) H Creatinine 0.7 mg/dL (0.6-1.0) Estimated GFR (Cockcroft-Gault) 80.7 Glucose Level 103 mg/dL (70-99) H Lactic Acid Level 3.8 mmol/L (0.4-2.0) H Calcium Level 9.0 mg/dL (8.5-10.1) Magnesium Level 1.7 mg/dL (1.8-2.4) L Total Bilirubin 1.5 mg/dL (0.2-1.0) H Direct Bilirubin 1.0 mg/dL (0.0-0.2) H Aspartate Amino Transferase (AST) 132 U/L (15-37) H Alanine Aminotransferase (ALT) 267 U/L (14-59) H Alkaline Phosphatase 299 U/L (46-116) H Creatine Kinase < 15 U/L (26-192) L Troponin I Quantitative 0.049 ng/mL (0-0.055) VM-Ncr-D-Type Natriuretic Peptide 3836 pg/mL (0-449) H Total Protein 7.5 g/dL (6.4-8.2) Albumin 3.0 g/dL (3.4-5.0) L Amylase Level 139 U/L (25-115) H Lipase 1068 U/L (73-393) H Urine Collection Type Unknown Urine Color Yellow Urine Clarity Hazy Urine pH 5.5 Urine Specific [place] 1.015 Urine Protein 30 mg/dl (NEG-TRACE) Urine Glucose (UA) Neg mg/dL (NEG) Urine Ketones (Stick) Neg mg/dL (NEG) Urine Blood Large (NEG) Urine Nitrite Neg (NEG) Urine Bilirubin Neg (NEG) Urine Urobilinogen Dipstick 0.2 mg/dL (0.2 mg/dL) Urine Leukocyte Esterase Small (NEG) Urine RBC >40 /HPF (0-2) Urine WBC 11-20 /HPF (0-4) Urine Squamous Epithelial Cells Occ /LPF Urine Amorphous Sediment Present /HPF Urine Bacteria 0 /HPF (0-FEW) Urine Mucus Slight /LPF Urine Opiates Screen Neg (NEG) Urine Methadone Screen Neg (NEG) Urine Barbiturates Neg (NEG) Urine Phencyclidine Screen Neg (NEG) Urine Amphetamine/Methamphetamine Neg (NEG) Urine Benzodiazepines Screen Neg (NEG) Urine Cocaine Screen Neg (NEG) Urine Cannabinoids Screen Neg (NEG) Urine Ethyl Alcohol Neg (NEG) EKG EKG My interpretation EKG shows a sinus tachycardia at 139 bpm. There is left axis. There is some nonspecific anterior lateral changes. No findings of acute STEMI of contralateral changes but there is a strain pattern. EKG[] Radiology/Procedures Radiology/[place] [address] IMAGING REPORT Signed PATIENT: YORDY CALLOWAY ACCOUNT: [id number] : 1940 LOCATION: ER AGE: 78 SEX: F EXAM STATUS: REG ER ORD. PHYSICIAN: JOHN ABERNATHY MD REASON: cp, epigastric pain, hx multiple DVT in past, not on anticoag. PROCEDURE: CT ANGIO CHEST W ABD PEL W/ CTA chest abdomen pelvis with contrast dated 04/17/2019. No comparison available. Clinical indication: Chest pain and epigastric pain. History of DVT. TECHNIQUE: Contiguous axial imaging the chest abdomen pelvis performed following the intravenous administration of 100 cc Isovue-370. Study was performed as dedicated PE protocol with thin cut coronal MIPS 3-D reconstruction. One or more of the following individualized dose reduction techniques were utilized for this examination: 1. Automated exposure control 2. Adjustment of the mA and/or kV according to patient size 3. Use of iterative reconstruction technique. FINDINGS: Contrast bolus is adequate. No evidence of central, lobar or segmental pulmonary embolus. There is enlargement of the main pulmonary artery measuring about 4.2 cm diameter. There is also ectasia of the ascending thoracic aorta measuring 4.1 cm transverse diameter. No intimal flap. Scattered coronary artery calcifications. Heart size is mildly enlarged. No pericardial effusion. Prominent constipation of the aortic and mitral valve. No mediastinal, hilar or axillary lymphadenopathy. There are nonpathologic enlarged lymph nodes in the right paratracheal region and left paratracheal region and bilateral axilla. Borderline enlarged lymph nodes are also noted at the bilateral hilum. Small calcification in the left thyroid gland, nonspecific. Central airways are patent. There is diffuse bronchiectasis and bronchial wall thickening with honeycomb cystic changes at both lung bases. Calcified granuloma right upper lobe. No consolidation or pleural effusion. No pneumothorax. Liver, spleen, pancreas, adrenal glands unremarkable. There are calcific stones filling the gallbladder lumen with diffuse gallbladder wall thickening. There is a 1.4 cm calcific stone at the left renal pelvis. 10 mm stone at the lower pole infundibulum on the left. Punctate calcific stones on the right. No ureteral stone or hydronephrosis. There are well-circumscribed low-density foci within both kidneys that are most consistent with cysts. Partially opacified GI tract normal in caliber and contour. No focal bowel wall thickening. No inflammatory stranding in the mesentery. The appendix is not identified and likely surgically absent. No adenopathy or ascites. The abdominal aorta is normal in caliber. Images the pelvis show moderately distended urinary bladder. There is a large rim-enhancing cystic mass along the under surface of the uterus that measures up to 7.8 cm in size. No free fluid or lymphadenopathy. Bone windows show no acute findings. Multilevel spondylosis. There is levoconvex scoliotic curvature of the lumbar spine IMPRESSION CHEST: 1. No evidence of central, lobar or segmental pulmonary embolus. 2. Enlargement of the main pulmonary artery suggesting pulmonary artery hypertension. 3. Moderate basilar interstitial fibrosis with bronchiectasis and extensive honeycomb cystic change. 4. Mild aneurysmal dilation of the ascending thoracic aorta. 5. Mild mediastinal and bilateral hilar lymphadenopathy, nonspecific. Impression abdomen pelvis: 1. Cholelithiasis with diffuse gallbladder wall thickening, nonspecific. Acute or chronic cholecystitis not excluded. 2. There is a 1.4 cm calcific stone at the left renal pelvis without significant hydronephrosis. Bilateral nephrolithiasis. 3. Large cystic lesion along the undersurface of the uterus of uncertain etiology. This could represent a cystic mass associated with the left ovary or a nonspecific uterine cyst. If indicated, pelvic ultrasound may provide additional information. Electronically signed by: Shar Coto MD (04/18/2019 12:48 AM) [place] [id number] DICTATED AND SIGNED BY: SHAR COTO MD DATE: 04/18/1947 CC: JOHN ABERNATHY MD; GAYLE QUARLES ~[][place] [address] IMAGING REPORT Signed PATIENT: YORDY CALLOWAY ACCOUNT: [id number] : 1940 LOCATION: ER AGE: 78 SEX: F EXAM STATUS: REG ER ORD. PHYSICIAN: JOHN ABERNATHY MD REASON: cough, fever, productive sputum PROCEDURE: PORTABLE CHEST 1V Exam: Chest one view INDICATION: Cough, fever TECHNIQUE: Frontal view of the chest Comparisons: 01/02/2019 FINDINGS: The cardiomediastinal silhouette and pulmonary vessels are within normal limits. Patchy airspace disease noted predominantly within the left lung which is mildly improved when compared to the prior exam. No pleural effusion. IMPRESSION: Patchy left basilar airspace disease favored to represent pneumonia. Aeration is mildly improved when compared to the study on 01/02/2019. Follow-up radiograph posttreatment is recommended to ensure resolution. Electronically signed by: Nilo Dumont MD (04/17/2019 9:23 PM) [facility] DICTATED AND SIGNED BY: NILO DUMONT MD DATE: 04/17/192122 CC: JOHN ABERNATHY MD; GAYLE QUARLES ~ Course & Med Decision Making Course & Med Decision Making Pertinent Labs and Imaging studies reviewed. (See chart for details) Critical Care 90 min. This discussed presentation, testing and treatment plan with Dr. Alcantara. Pt. to be transfer to [facility], surgical consult on possible cholecystitis. ICU care- no beds due to staffing at [facility]. [] Final Impression Final Impression 1. Fever 2. Pneumonia bibasilar- 3. Rheumatoid arthritis 4. Elevated lipase 1068 5. Elevated Darius 1.5/1.0 6. Elevated AST, ALT, Alk Phos. 7. CHF BNP 3,836 8. Hypomagnesium 1.7 9. Elevated BUN 41 10. Elevated lactic acid 3.8 11. Elevated D-dimer 12. Leukocytosis 13.3 13. Anemia Hgb. 8.6 14. Elevated Platelets 490 15. Malnutrition 3.0 16. Acute on Chronic ? Cholecystitis 17. Pulmonary fibrosis 18. Pulmonary hypertension Dragon Disclaimer Dragon Disclaimer This electronic medical record was generated, in whole or in part, using a voice recognition dictation system. Dragon Disclaimer This chart was dictated in whole or in part using Voice Recognition software in a busy, high-work load, and often noisy Emergency Department environment. It may contain unintended and wholly unrecognized errors or omissions. JOHN ABERNATHY MD Apr 17, 2019 20:09
[2019-04-17] MEDS ORDERED: VANCOMYCIN 1 GM VIAL. ONE (21:15)
[2019-04-17] MEDS ORDERED: IV NORMAL SALINE 250ML 250 ML ONE (21:15)
[2019-04-17 21:21] LABS: BASO % 0 % (0-3); EOS # 0.1 x10^3/uL (0.0-0.7); EOS % 1 % (0-3); HEMATOCRIT 26.8 % (36.0-47.0); HEMOGLOBIN 8.6 g/dL (12.0-15.5); LYMPH # 0.8 x10^3/uL (1.0-4.8); LYMPH % 6 % (24-48); MEAN CORPUSCULAR HEMOGLOBIN 31 pg (25-35); MEAN CORPUSCULAR HGB CONC 32 g/dL (31-37); MEAN CORPUSCULAR VOLUME 96 fL (79-100); MONO # 0.2 x10^3/uL (0.0-1.1); MONO % 1 % (0-9); NEUT # 12.2 x10^3uL (1.8-7.7); NEUT % 92 % (31-73); PLATELET COUNT 490 x10^3/uL (140-400); RED CELL DISTRIBUTION WIDTH 17.8 % (11.5-14.5); WHITE BLOOD COUNT 13.3 x10^3/uL (4.0-11.0)
--- NOTE | 2019-04-17 21:26 | RAD ---
Exam: Chest one view INDICATION: Cough, fever TECHNIQUE: Frontal view of the chest Comparisons: 01/02/2019 FINDINGS: The cardiomediastinal silhouette and pulmonary vessels are within normal limits. Patchy airspace disease noted predominantly within the left lung which is mildly improved when compared to the prior exam. No pleural effusion. IMPRESSION: Patchy left basilar airspace disease favored to represent pneumonia. Aeration is mildly improved when compared to the study on 01/02/2019. Follow-up radiograph posttreatment is recommended to ensure resolution. Electronically signed by: Nilo Tang MD (04/17/2019 9:23 PM) [facility]
[2019-04-17] MEDS ORDERED: IV RINGERS SOLUTION,LACTATED 1,000 ML IV SCH (21:30)
[2019-04-17] MEDS ORDERED: VANCOMYCIN 1 GM in IV NORMAL SALINE 250ML 250 ML IV ONE (21:30)
--- NOTE | 2019-04-17 21:31 | EKG ---
[address] [address] Test Date: 2019-04-17 Test Time: 21:28:48 Pat Name: YORDY CALLOWAY Department: Room: Gender: F Guest Attendant: SHIRA : 1940 Requested By: JOHN ABERNATHY Order Number: [id number] Reading MD: Measurements Intervals [place] Rate: 139 P: 51 KS: 124 QRS: -19 QRSD: 78 T: 84 QT: 272 QTc: 418 Interpretive Statements SINUS TACHYCARDIA LEFTWARD AXIS QRS(T) CONTOUR ABNORMALITY CONSIDER ANTEROLATERAL MYOCARDIAL DAMAGE CONSIDER INFERIOR MYOCARDIAL DAMAGE POSSIBLY ABNORMAL ECG RI6.01 No previous ECG available for comparison
[2019-04-17 21:43] LABS: ALK PHOS 299 U/L (46-116); ALT (SGPT) 267 U/L (14-59); ANION GAP 11 (6-14); AST (SGOT) 132 U/L (15-37); BLOOD UREA NITROGEN 41 mg/dL (7-20); CARBON DIOXIDE 22 mmol/L (21-32); CHLORIDE 107 mmol/L (98-107); CREATININE 0.7 mg/dL (0.6-1.0); GFR 80.7; GLUCOSE 103 mg/dL (70-99); LIPASE 1068 U/L (73-393); MAGNESIUM 1.7 mg/dL (1.8-2.4); POTASSIUM 4.6 mmol/L (3.5-5.1); SODIUM 140 mmol/L (136-145); TOTAL BILIRUBIN 1.5 mg/dL (0.2-1.0); TOTAL PROTEIN 7.5 g/dL (6.4-8.2)
[2019-04-17] MEDS ORDERED: ACETAMINOPHEN 500 MG TABLET PO ONE ×2 (21:53→22:45)
[2019-04-17 22:22] LABS: SEDIMENTATION RATE 111 (0-25)
[2019-04-17 22:22] LABS: BARBITURATES NEG (NEG); BENZODIAZEPINES NEG (NEG); CANNABINOIDS NEG (NEG); COCAINE NEG (NEG); METHADONE NEG (NEG); OPIATES NEG (NEG); PHENCYCLIDINE NEG (NEG)
[2019-04-17 22:30] LABS: AMPHETAMINE/METHAMPHETAMINE NEG (NEG)
[2019-04-17] MEDS ORDERED: IV RINGERS SOLUTION,LACTATED 1,000 ML IV ONE (22:30)
[2019-04-17 22:35] LABS: BACTERIA,URINE 0 /HPF (0-FEW); BILIRUBIN,URINE NEG (NEG); CLARITY,URINE HAZY; COLOR,URINE YELLOW; GLUCOSE,URINE NEG (NEG); NITRITE,URINE NEG (NEG); RBC,URINE >40 /HPF (0-2); SQUAMOUS EPITHELIAL CELL,UR OCC /LPF; UROBILINOGEN,URINE 0.2 mg/dL (0.2 mg/dL)
[2019-04-17 22:36] LABS: AMORPHOUS SEDIMENT,UR PRESENT /HPF
[2019-04-17] MEDS ORDERED: FUROSEMIDE 40 MG/4 ML VIAL IVP ONE (22:45)
[2019-04-17] MEDS ORDERED: IOHEXOL 350 MG/ML 100 ML VIAL. IV ONE (23:30)
[2019-04-17] MEDS ORDERED: IOHEXOL 240 MG/ML 50ML VIAL. PO ONE (23:30)
[2019-04-17] MEDS ORDERED: ENOXAPARIN ** NOTE DOSE ** SYRINGE SQ ONE (23:30)
[2019-04-18] MEDS ORDERED: methylPREDNISolone SOD SUCC PF 125 MG/2 ML VIAL. IV ONE
--- NOTE | 2019-04-18 00:50 | RAD ---
CTA chest abdomen pelvis with contrast dated 04/17/2019. No comparison available. Clinical indication: Chest pain and epigastric pain. History of DVT. TECHNIQUE: Contiguous axial imaging the chest abdomen pelvis performed following the intravenous administration of 100 cc Isovue-370. Study was performed as dedicated PE protocol with thin cut coronal MIPS 3-D reconstruction. One or more of the following individualized dose reduction techniques were utilized for this examination: 1. Automated exposure control 2. Adjustment of the mA and/or kV according to patient size 3. Use of iterative reconstruction technique. FINDINGS: Contrast bolus is adequate. No evidence of central, lobar or segmental pulmonary embolus. There is enlargement of the main pulmonary artery measuring about 4.2 cm diameter. There is also ectasia of the ascending thoracic aorta measuring 4.1 cm transverse diameter. No intimal flap. Scattered coronary artery calcifications. Heart size is mildly enlarged. No pericardial effusion. Prominent constipation of the aortic and mitral valve. No mediastinal, hilar or axillary lymphadenopathy. There are nonpathologic enlarged lymph nodes in the right paratracheal region and left paratracheal region and bilateral axilla. Borderline enlarged lymph nodes are also noted at the bilateral hilum. Small calcification in the left thyroid gland, nonspecific. Central airways are patent. There is diffuse bronchiectasis and bronchial wall thickening with honeycomb cystic changes at both lung bases. Calcified granuloma right upper lobe. No consolidation or pleural effusion. No pneumothorax. Liver, spleen, pancreas, adrenal glands unremarkable. There are calcific stones filling the gallbladder lumen with diffuse gallbladder wall thickening. There is a 1.4 cm calcific stone at the left renal pelvis. 10 mm stone at the lower pole infundibulum on the left. Punctate calcific stones on the right. No ureteral stone or hydronephrosis. There are well-circumscribed low-density foci within both kidneys that are most consistent with cysts. Partially opacified GI tract normal in caliber and contour. No focal bowel wall thickening. No inflammatory stranding in the mesentery. The appendix is not identified and likely surgically absent. No adenopathy or ascites. The abdominal aorta is normal in caliber. Images the pelvis show moderately distended urinary bladder. There is a large rim-enhancing cystic mass along the under surface of the uterus that measures up to 7.8 cm in size. No free fluid or lymphadenopathy. Bone windows show no acute findings. Multilevel spondylosis. There is levoconvex scoliotic curvature of the lumbar spine IMPRESSION CHEST: 1. No evidence of central, lobar or segmental pulmonary embolus. 2. Enlargement of the main pulmonary artery suggesting pulmonary artery hypertension. 3. Moderate basilar interstitial fibrosis with bronchiectasis and extensive honeycomb cystic change. 4. Mild aneurysmal dilation of the ascending thoracic aorta. 5. Mild mediastinal and bilateral hilar lymphadenopathy, nonspecific. Impression abdomen pelvis: 1. Cholelithiasis with diffuse gallbladder wall thickening, nonspecific. Acute or chronic cholecystitis not excluded. 2. There is a 1.4 cm calcific stone at the left renal pelvis without significant hydronephrosis. Bilateral nephrolithiasis. 3. Large cystic lesion along the undersurface of the uterus of uncertain etiology. This could represent a cystic mass associated with the left ovary or a nonspecific uterine cyst. If indicated, pelvic ultrasound may provide additional information. Electronically signed by: Shar Coto MD (04/18/2019 12:48 AM) [id number]
[2019-04-18 00:55] VITALS: BP 120/101
== END 2019-04-18 01:05 | disposition short-term general hospital (02) ==
LOC: ER 19:59
DX: J18.8 Other pneumonia, unspecified organism (principal); M06.9 Rheumatoid arthritis, unspecified; R74.8 Abnormal levels of other serum enzymes; I11.0 Hypertensive heart disease with heart failure; I50.9 Heart failure, unspecified; E83.42 Hypomagnesemia; R74.0 Nonspecific elevation of levels of transaminase and lactic acid dehydrogenase [LDH]; R79.1 Abnormal coagulation profile; D72.829 Elevated white blood cell count, unspecified; D64.9 Anemia, unspecified; D72.828 Other elevated white blood cell count; E46 Unspecified protein-calorie malnutrition; J84.10 Pulmonary fibrosis, unspecified; G89.29 Other chronic pain; E80.7 Disorder of bilirubin metabolism, unspecified; K21.9 Gastro-esophageal reflux disease without esophagitis; E11.9 Type 2 diabetes mellitus without complications; J44.9 Chronic obstructive pulmonary disease, unspecified; K80.20 Calculus of gallbladder without cholecystitis without obstruction; Z86.718 Personal history of other venous thrombosis and embolism; Z87.442 Personal history of urinary calculi; Z87.440 Personal history of urinary (tract) infections; Z68.29 Body mass index [BMI] 29.0-29.9, adult; Z79.01 Long term (current) use of anticoagulants; Z88.1 Allergy status to other antibiotic agents; Z88.8 Allergy status to other drugs, medicaments and biological substances; Z91.048 Other nonmedicinal substance allergy status
CPT/HCPCS: 36415; 71045; 71275; 74177; 80048; 80076; 80307; 81001; 82150; 82550; 83605; 83690; 83735; 83880; 84443; 84484; 85025; 85379; 85610; 85651; 85730; 87040; 87086; 93005; 96365; 96366; 96368; 96375; 99291; 99292; J1940; J1956; J3370; J7050; J7120; Q9966; Q9967

== ENCOUNTER 2019-09-12 11:06 | Inpatient (IN) | payer MEDICARE ==
[2019-09-12] VITALS (22 sets, daily range): BP systolic 71–104; BP diastolic 44–72
[~2019-09-12] VITALS: Ht 149.9 cm; Wt 57.6 kg
[2019-09-12] MEDS ORDERED: 0.9 % SODIUM CHLORIDE 10 ML DISP.SYRIN. IV PRN (11:15)
[2019-09-12] MEDS ORDERED: IV NORMAL SALINE 1,000ML 1,000 ML IV ONE ×2 (11:15→12:15)
[2019-09-12] MEDS ORDERED: IPRATRPIUM/ALBUTEROL 0.5/2.5MG 3 ML NEBU. NEB ONE (11:30)
[2019-09-12 11:45] LABS: BASO % 0 % (0-3); EOS % 0 % (0-3); HEMATOCRIT 32.7 % (36.0-47.0); HEMOGLOBIN 9.6 g/dL (12.0-15.5); LYMPH # 1.8 x10^3/uL (1.0-4.8); LYMPH % 10 % (24-48); MEAN CORPUSCULAR HEMOGLOBIN 30 pg (25-35); MEAN CORPUSCULAR HGB CONC 30 g/dL (31-37); MEAN CORPUSCULAR VOLUME 101 fL (79-100); MONO % 6 % (0-9); NEUT # 15.2 x10^3uL (1.8-7.7); NEUT % 84 % (31-73); PLATELET COUNT 365 x10^3/uL (140-400); RED BLOOD COUNT 3.25 x10^6/uL (3.50-5.40); RED CELL DISTRIBUTION WIDTH 18.1 % (11.5-14.5)
--- NOTE | 2019-09-12 11:55 | RAD ---
PORTABLE CHEST 1V Clinical indications: Shortness of air. COMPARISON: April 17, 2019. Findings: Granuloma of the right midlung zone is again seen. Chronic interstitial lung disease is seen bilaterally with small lung volumes consistent with chronic pulmonary fibrosis. No new lung infiltrate or pleural effusion or pneumothorax is seen. Right IJ central line is in place and tip is seen within the mid superior vena cava. The heart size, pulmonary vasculature, mediastinum and both trena are stable. Chronic erosion of both shoulders is again evident. Chronic fracture of the proximal right humerus is again evident. Impression: Chronic pulmonary fibrosis. No new abnormality. Electronically signed by: Lars Lamar MD (09/12/2019 11:52 AM) [id number]
[2019-09-12 12:08] LABS: ALBUMIN 2.3 g/dL (3.4-5.0); ALBUMIN/GLOBULIN RATIO 0.4 (1.0-1.7); CALCIUM 9.5 mg/dL (8.5-10.1); CREATININE 1.4 mg/dL (0.6-1.0); GFR 36.2; TOTAL BILIRUBIN 0.3 mg/dL (0.2-1.0); TOTAL PROTEIN 7.6 g/dL (6.4-8.2)
[2019-09-12 12:09] LABS: POTASSIUM 6.3 mmol/L (3.5-5.1)
[2019-09-12] MEDS ORDERED: IV NORMAL SALINE 1,000ML 1,000 ML IV SCH ×2 (12:09→13:30)
[2019-09-12] MEDS ORDERED: ALBUTEROL SULFATE 2.5 MG/3 ML NEBU. CONT NEB ONE (12:15)
--- NOTE | 2019-09-12 12:17 | PHYS DOC ---
Past History Past Medical History: Anemia, Bronchitis, CHF, COPD, Depression, Diabetes, DVT, GERD, Kidney Stones, Pneumonia Past Surgical History: Other Alcohol Use: None Drug Use: None Adult General Chief Complaint Chief Complaint: SHORTNESS OF BREATH HPI HPI Patient is a 79-year-old female who was brought here from the skilled nursing due to cough and trouble breathing with low blood pressure. Patient has history of sepsis in the past, had an indwelling central line in the right IJ area. Chest x-ray was done today show bilateral lower lobe infiltration so the patient was sent here for admission. Patient complaints of general weakness, nonproductive cough. She denies any chest pain. All other ROS is negative unless otherwise noted in HPI Review of Systems Review of Systems See above Current Medications Current Medications Current Medications Medications (Trade) Dose Ordered Sig/Indy Start Time Stop Time Status Last Admin Dose Admin Albuterol Sulfate (Ventolin) 10 mg 1X ONCE 09/12/19 12:15 09/12/19 12:16 DC Albuterol/ Ipratropium (Duoneb) 3 ml RTQID 09/12/19 16:00 09/13/19 15:59 Calcium Gluconate 1,000 mg 1X ONCE 09/12/19 12:15 09/12/19 12:16 UNV Dextrose (Dextrose 50%-Water Syringe) 25 gm 1X ONCE 09/12/19 12:15 09/12/19 12:16 UNV Insulin Human Regular (HumuLIN R VIAL) 10 unit 1X ONCE 09/12/19 12:15 09/12/19 12:16 UNV Levofloxacin/ Dextrose 150 ml @ 100 mls/hr 1X ONCE 09/12/19 11:30 09/12/19 12:59 09/12/19 11:30 100 MLS/HR Sodium Bicarbonate (Sodium Bicarb Adult 8.4% Syr) 50 meq 1X ONCE 09/12/19 12:15 09/12/19 12:16 UNV Sodium Chloride 1,000 ml @ 75 mls/hr [id number] 09/12/19 12:09 09/13/19 12:08 Sodium Chloride (Normal Saline Flush) 10 ml QSHIFT PRN 09/12/19 11:15 Allergies Allergies Allergies Coded Allergies Type Severity Reaction Last Updated Verified cephalexin Allergy Intermediate 09/25/18 Yes hydroxychloroquine Allergy Intermediate 09/25/18 Yes cefazolin Allergy Mild 09/25/18 Yes soap Allergy Unknown 09/25/18 Yes Physical Exam Physical Exam See above Constitutional: Well developed, well nourished, mild acute distress, non-toxic appearance. [] HENT: Normocephalic, atraumatic, bilateral external ears normal, oropharynx moist, no oral exudates, nose normal. [] Eyes: PERRLA, EOMI, right side conjunctival with some yellow discharge. Neck: Normal range of motion, no tenderness, supple, no stridor. [] Cardiovascular: SINUS TACHYCARDIA, rate regular rhythm, no murmur [] Lungs & Thorax: COURSE AND RALES AT BOTH LUNG BASES. NO RESPIRATORY DISTRESS. Abdomen: Bowel sounds normal, soft, no tenderness, no masses, no pulsatile masses. [] Skin: DECUBITUS ULCER ON RIGHT BUTTOCK AREA.] Back: No tenderness, no CVA tenderness. [] Extremities: No tenderness, no cyanosis, no clubbing, ROM intact, no edema. RIGHT BKA. Neurologic: Alert and oriented X 3, normal motor function, normal sensory function, no focal deficits noted. [] Psychologic: Affect normal, judgement normal, mood normal. [] Current Patient Data Vital Signs Vital Signs Date Time Temp Pulse Resp B/P (MAP) Pulse Ox O2 Delivery O2 Flow Rate FiO2 09/12/19 12:14 134 22 101/50 (67) 97 Nasal Cannula 4.0 09/12/19 11:23 98.4 Lab Results Laboratory Tests Test 09/12/19 11:20 White Blood Count 18.1 x10^3/uL (4.0-11.0) H Red Blood Count 3.25 x10^6/uL (3.50-5.40) L Hemoglobin 9.6 g/dL (12.0-15.5) L Hematocrit 32.7 % (36.0-47.0) L Mean Corpuscular Volume 101 fL (79-100) H Mean Corpuscular Hemoglobin 30 pg (25-35) Mean Corpuscular Hemoglobin Concent 30 g/dL (31-37) L Red Cell Distribution Width 18.1 % (11.5-14.5) H Platelet Count 365 x10^3/uL (140-400) Neutrophils (%) (Auto) 84 % (31-73) H Lymphocytes (%) (Auto) 10 % (24-48) L Monocytes (%) (Auto) 6 % (0-9) Eosinophils (%) (Auto) 0 % (0-3) Basophils (%) (Auto) 0 % (0-3) Neutrophils # (Auto) 15.2 x10^3uL (1.8-7.7) H Lymphocytes # (Auto) 1.8 x10^3/uL (1.0-4.8) Monocytes # (Auto) 1.0 x10^3/uL (0.0-1.1) Eosinophils # (Auto) 0.0 x10^3/uL (0.0-0.7) Basophils # (Auto) 0.0 x10^3/uL (0.0-0.2) Platelet Estimate Pending Prothrombin Time 11.4 SEC (9.4-11.4) Prothrombin Time INR 1.1 (0.9-1.1) Activated Partial Thromboplast Time 26 SEC (23-33) Sodium Level 149 mmol/L (136-145) H Potassium Level 6.3 mmol/L (3.5-5.1) *H Chloride Level 118 mmol/L (98-107) H Carbon Dioxide Level 17 mmol/L (21-32) L Anion Gap 14 (6-14) Blood Urea Nitrogen 84 mg/dL (7-20) H Creatinine 1.4 mg/dL (0.6-1.0) H Estimated GFR (Cockcroft-Gault) 36.2 BUN/Creatinine Ratio 60 (6-20) H Glucose Level 130 mg/dL (70-99) H Lactic Acid Level 3.0 mmol/L (0.4-2.0) H Calcium Level 9.5 mg/dL (8.5-10.1) Total Bilirubin 0.3 mg/dL (0.2-1.0) Aspartate Amino Transferase (AST) 18 U/L (15-37) Alanine Aminotransferase (ALT) 12 U/L (14-59) L Alkaline Phosphatase 100 U/L (46-116) Troponin I Quantitative 0.099 ng/mL (0-0.055) H UK-Yeo-C-Type Natriuretic Peptide 54783 pg/mL (0-449) H Total Protein 7.6 g/dL (6.4-8.2) Albumin 2.3 g/dL (3.4-5.0) L Albumin/Globulin Ratio 0.4 (1.0-1.7) L EKG EKG [] Radiology/Procedures Radiology/Procedures chest xray that was done at the skilled nursing today with reports of infiltrates bilateral lower lobes. Course & Med Decision Making Course & Med Decision Making Pertinent Labs and Imaging studies reviewed. (See chart for details) Patient is an 79-year-old female who was brought here from skilled nursing due to cough and trouble breathing, she was found to be in severe sepsis, with healt hcare associated pneumonia. Patient also was felt to be dehydrated, hyperkalemia. Patient was given 2 L normal saline IV bolus in the ER. Patient was given 750 mg of Levaquin iv. she was given 10 mg of albuterol neb, 1 ampule of Sodium bicarbonate, 1 gram of calcium gluconate, 10 units of regular insulin for hyperkalemia treatment. Critical care time was [45] minutes exclusive of procedures. Dragon Disclaimer Dragon Disclaimer This electronic medical record was generated, in whole or in part, using a voice recognition dictation system. Departure Departure: Impression: Primary Impression: Severe sepsis Additional Impressions: HCAP (healthcare-associated pneumonia) Hyperkalemia Acute dyspnea Disposition: 09 ADMITTED INPATIENT Admitting Physician: Naomi Alcantara Condition: GUARDED Referrals: KRYSTAL QUARLES (PCP) Sepsis Assessment Date and Time of Assessment Date: Sep 12, 2019 Time: 12:42 Vital Signs Vital Signs Vital Signs Date Time Temp Pulse Resp B/P (MAP) Pulse Ox O2 Delivery O2 Flow Rate FiO2 09/12/19 12:19 96 Nasal Cannula 4.0 09/12/19 12:14 134 22 101/50 (67) 09/12/19 11:23 98.4 Respirations Respiratory Effort: Labored Respiratory Pattern: Normal Cardiovascular Pulse Rhythm: Irregular (tachycardia) HEART: No murmurs noted Lung Sounds Breath Sounds: Rales (at lung bases) Capillary Refill Capillary Refill: Lt Hand < 3 seconds Peripheral Pulse Pulse Location: Radial Pulse Strength: Normal (2+) Pulse Assessment Method: NIBP Integumentary Skin: Warm Skin Moisture: Moist Skin Turgor: Normal Skin Color: warm Fingernail Color: WNL Problem Qualifiers EDAN [place] DO Sep 12, 2019 12:17
--- NOTE | 2019-09-12 12:23 | EKG ---
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
[2019-09-12 12:27] LABS: % BANDS 32 % (0-9); % BASOS 1 % (0-3); % LYMPHS 9 % (24-48); % METAS 1 % (0-0); % MONOS 7 % (0-10); % SEGS 50 % (35-66)
[2019-09-12 12:28] LABS: PLT ESTIMATE INCREASED (ADEQUATE)
[2019-09-12 12:29] LABS: ANISOCYTOSIS SLIGHT; TOXIC GRANULATION PRESENT; TOXIC VACUOLATION PRESENT
[2019-09-12] MEDS ORDERED: VANCOMYCIN 1.5 GM in IV NORMAL SALINE 500ML 500 ML IV ONE (12:30)
[2019-09-12] MEDS ORDERED: CALCIUM GLUCONATE 1,000 MG/10 ML VIAL IV ONE (12:30)
[2019-09-12] MEDS ORDERED: VANCOMYCIN PER PHARMACY MC PRN (12:30)
[2019-09-12] MEDS ORDERED: DEXTROSE 50% 25 GM / 50ML DISP.SYRIN. IV ONE (12:30)
[2019-09-12] MEDS ORDERED: INSULIN REGULAR 100 UNIT/ML 3ML VIAL. IV ONE (12:30)
[2019-09-12] MEDS ORDERED: SODIUM BICARBONATE 50 MEQ/50 ML VIAL. IV ONE (12:30)
[2019-09-12 12:31] LABS: HYPOCHROMIA SLIGHT
[2019-09-12 12:33] LABS: OVALOCYTES OCC
[2019-09-12 12:34] LABS: POIKILOCYTOSIS SLIGHT
[2019-09-12 12:35] LABS: INFLUENZA A PATIENT NEGATIVE (NEGATIVE); INFLUENZA B PATIENT NEGATIVE (NEGATIVE)
[2019-09-12] MEDS ORDERED: FUROSEMIDE 40 MG/4 ML VIAL ONE (12:57)
[2019-09-12] MEDS ORDERED: FUROSEMIDE 40 MG/4 ML VIAL IVP ONE (13:00)
--- NOTE | 2019-09-12 13:00 | NUR ---
The patient, YORDY CALLOWAY, 79 y/o, F admitted by JAYY SANTOS MD, was given written information regarding hospital policies, unit procedures and contact persons. Valuables were checked and belongings left in room. Patient arrived to ICU 2, appeared to having difficulty breathing and currently on 4.5L NC. Patients lung sound coarse and congested, suction set up immediately upon arrival with green sputum obtained. Sputum culture obtained at this time. Vitals obtained upon arrival, HR 138-143. Blood pressure elevated and appeared to be having diffuculty breathing. Dr SANTOS notified of patients condition and reviewed labs and vitals, orders for Lasix IVP if BP is over >130. Stop IV fluids, place irby cath at this time. Patient remained alert and oriented x3 with some confusion noted. DNR and medication list placed in chart.
[2019-09-12 13:43] LABS: BGAS PH 7.29 (7.35-7.45)
[2019-09-12 13:58] LABS: BACTERIA,URINE MANY /HPF (0-FEW); BILIRUBIN,URINE NEG (NEG); CLARITY,URINE TURBID; COLOR,URINE AMBER; GLUCOSE,URINE NEG (NEG); NITRITE,URINE NEG (NEG); RBC,URINE >40 /HPF (0-2); SQUAMOUS EPITHELIAL CELL,UR FEW /LPF; UROBILINOGEN,URINE 0.2 mg/dL (0.2 mg/dL); WBC,URINE >40 /HPF (0-4)
--- NOTE | 2019-09-12 14:00 | NUR ---
Nurse was only able to push 20mg of lasix before patients blood pressure decreased to 90/50s. Physician aware and cardiology notified of consult. Orders to give 250 fluid bolus and start NS at 75/hr. Patient states she is feeling much better once being suctioned and irby cath placed. UA obtained, with cloudy sediment noted.
[2019-09-12] MEDS: IPRATRPIUM/ALBUTEROL 0.5/2.5MG 3 ML NEBU. NEB SCH ×2 (16:23→20:08)
[2019-09-12 16:27] LABS: CALCIUM 8.4 mg/dL (8.5-10.1); CREATININE 1.3 mg/dL (0.6-1.0); GFR 39.4; POTASSIUM 5.7 mmol/L (3.5-5.1)
--- NOTE | 2019-09-12 17:30 | NUR ---
Sister states she will be back tomorrow with her other sister, who both are DPOA for patient. Nursing staff and physcian have spoke with patient and family in regards to decline in status and have questioned if they would like hospice to come in for a consult. Patient stated she would like to have blood pressures treated but would like to meet with hospice. States she is tired of being poked and prodded. Soda Clerk here to discuss with family plan of care and hospice options, family is very tearful at this time and feels as this was "all of a sudden and out of no where." Nursing staff educated patient and family with patients continuing decline and need for oxygen due to chronic condition. Family is more understanding and open to hear what hospice has to say. Meeting is set up for tomorrow morning with [facility] for consult. Patient and family agree that they would hospice to come in and that they feel that they are ready now. Patients blood pressures are continuing to decrease to 80/40s, per Dr Alcantara orders to start patient on Levophed gtt. Family and patient agree with IV Fluids, antibiotics and drip.
[2019-09-12] MEDS ORDERED: CYAN10002 IM (17:36)
--- NOTE | 2019-09-12 17:50 | HP ---
ADMIT DATE: 09/12/2019 HISTORY OF PRESENT ILLNESS: The patient is an 79-year-old female patient, a resident at [facility], who was brought to the Emergency Room, complaining of cough and trouble breathing with low blood pressure. The patient has a history of sepsis and right-sided indwelling central line in the right IJ area. Chest x-ray was done, showed bilateral lower lobe infiltrate. Therefore, the patient was sent here for inpatient treatment. She did complain of generalized weakness, nonproductive cough, but denied any chest pain. She was evaluated in the Emergency Room, was found to have marked leukocytosis with a white cell count of 18,000. Her blood gases showed a pH of 7.29, pCO2 of 25, pO2 of 94, bicarbonate 12 and oxygen saturation was 96%. Her prothrombin time, INR and aPTT were normal. Her chemistry showed serum sodium 149, potassium 6.3, chloride 118, bicarbonate was 17 and anion gap of 14, BUN 84, creatinine 1.4, estimated GFR was 56 mL per minute. She was started on IV fluid and IV Levaquin. We added Zyvox and meropenem. PAST MEDICAL HISTORY: Significant for atrial fibrillation, chronic obstructive pulmonary disease, congestive heart failure, anemia, depression, dysphagia, gastroesophageal reflux disease, bilateral sensorineural deafness, osteomyelitis, osteoporosis, pulmonary fibrosis, rheumatoid arthritis, thrombophlebitis, urinary incontinence and generalized weakness. PAST SURGICAL HISTORY: Significant for she has had right above knee amputation, bilateral cataract extraction, colon surgery, left fifth finger fracture status post open reduction and internal fixation. FAMILY HISTORY: Noncontributory. SOCIAL HISTORY: She is a resident at [facility] [place]. She does not smoke, drink alcohol or use any recreational drugs. REVIEW OF SYSTEMS: As per history of present illness. ALLERGIES: SHE IS ALLERGIC TO CEFAZOLIN, CEPHALEXIN, HYDROXYCHLOROQUINE AND SOAP. MEDICATIONS: She is currently on following medications: She is on sulfamethoxazole and trimethoprim 1 tablet p.o. b.i.d. for 7 days, ferrous sulfate 325 mg twice a day, aspirin 81 mg once a day, acetaminophen 650 mg every 4 hours, artificial tears 1 drop to both eyes 4 times a day, bisacodyl 5 mg p.o. daily, Colace 100 mg daily as needed, senna 1 tablet twice a day, Protonix 40 mg once a day, prednisone 5 mg once a day, cholecalciferol vitamin D3 at 2000 international unit once a day, multivitamin 1 tablet once a day, saliva stimulant Biotene moisturizing by mouth as needed. PHYSICAL EXAMINATION: GENERAL: On arrival to the Emergency Room, she was markedly tachypneic, tachycardic, pale, but no jaundice, cyanosis or thyromegaly. No jugular venous distention. No lower limb edema. VITAL SIGNS: Her heart rate was 141, blood pressure was 93/47, temperature 98.4, respiratory rate was 28 and oxygen saturation was 95% on 4 liters of oxygen. HEAD, EYES, EARS, NOSE AND THROAT: Showed normocephalic, atraumatic. NECK: Supple. HEART: Showed normal first and second heart sounds with no gallop or murmur. CHEST: Shows central trachea, equally reduced expansion, reduced air entry, vesicular sounds with bilateral basal crepitation. I could not really appreciate any rhonchi. ABDOMEN: Distended, soft, nontender. NEUROLOGIC: She is very hard of hearing and otherwise all other cranial nerves are intact. She moves upper extremities to much significance. Lower extremities, she has right below-knee amputation. LABORATORY DATA: Her lab works on arrival to the Emergency Room showed serum sodium 149, potassium 6.3, chloride 118, bicarbonate 17, anion gap of 14, BUN 84, creatinine 1.4, estimated GFR was 36 mL per minute. Her glucose 130, lactic acid was 3. Serum calcium was 9.5. Total bilirubin, AST, ALT, alkaline phosphatase are normal. Total protein was 7.6, albumin was 2.3. Beta natriuretic peptide was 27,764 and first set of cardiac enzymes showed troponin to be 0.099. White cell count was 18,000, hemoglobin 9.6, hematocrit 33, MCV 101 and platelet count of 365,000 with normal manual differential. Her blood gases showed a pH of 7.29, pCO2 of 25, pO2 of 94, bicarbonate 12 and oxygen saturation was 96% on FiO2 of 36%. Urinalysis showed the urine was turbid with a pH of 5.5, specific gravity of 1.020. There is more than 100 mg/dL protein. The urine was negative for glucose, ketones. There was large amount of blood, negative for nitrite, large amount of leukocyte esterase, more than 40 rbc's, more than 40 wbc's, and many bacteria. Her influenza A and B were negative. ASSESSMENT AND PLAN: In summary, this is an 79-year-old female patient with multitude medical problems who was admitted with sepsis. She was given a dose of Levaquin. We will switch her to Zyvox and meropenem. Continue with IV fluid and we will follow with the results of the urine and blood culture. JAYY SANTOS MD DR: SHWETA/yg JOB#: [id number] / [id number]
[2019-09-12] MEDS: NOREPINEPHRINE BITARTRATE 8 MG in IV DEXTROSE 5% 250 ML IV PRN (17:52)
[2019-09-12] MEDS: MEROPENEM 500 MG in IV NORMAL SALINE 50ML 50 ML IV SCH ×2 (17:56→23:41)
[2019-09-12] MEDS: IV DEXTROSE 5% 1,000 ML IV SCH (17:58)
[2019-09-12] MEDS ORDERED: CALCIUM GLUCONATE 1,000 MG/10 ML VIAL ONE (18:05)
[2019-09-12] MEDS ORDERED: ASCO500C PO (18:35)
[2019-09-12] MEDS ORDERED: PHEN20SP MM (18:35)
[2019-09-12] MEDS ORDERED: PRED5TAB PO (18:35)
[2019-09-12] MEDS ORDERED: CHOL3000 PO (18:35)
[2019-09-12] MEDS ORDERED: CINA30TA2 PO (18:35)
[2019-09-12] MEDS ORDERED: CYPR4TAB31 PO (18:35)
[2019-09-12] MEDS ORDERED: MAG355OR11 PO (18:35)
[2019-09-12] MEDS ORDERED: GUAI-105 PO (18:35)
[2019-09-12] MEDS ORDERED: ACET325T21 PO (18:35)
[2019-09-12] MEDS ORDERED: FURO40TA4 PO (18:35)
[2019-09-12] MEDS ORDERED: ONDA4TAB7 PO (18:35)
[2019-09-12] MEDS ORDERED: IPRA3AMP29 NEB (18:35)
[2019-09-12] MEDS ORDERED: SENN8.8S5 PO (18:35)
[2019-09-12] MEDS ORDERED: PANT40TA3 PO (18:35)
[2019-09-12] MEDS ORDERED: EPOGEN10000 UNIT IJ (18:35)
[2019-09-12] MEDS ORDERED: AMIN30LI2 PO (18:35)
[2019-09-12] MEDS ORDERED: LACT1CAP6 PO (18:35)
[2019-09-12] MEDS ORDERED: MIDO5TAB4 PO (18:35)
[2019-09-12] MEDS ORDERED: potassium chloride PO (19:21)
--- NOTE | 2019-09-12 19:22 | NUR ---
Report given to Rachel AVINA at this time, remains on IV fluids and Levophed gtt. Sats 99% on 2.5L of O2 NC. Patient continues to require suction periodically to help clear secretions. Patient states she is feeling much better then arrival to unit.
[2019-09-12] MEDS: HYDROCORTISONE SOD SUCC/PF 100 MG/2 ML VIAL. IVP SCH (21:21)
[2019-09-13] VITALS (18 sets, daily range): BP systolic 94–126; BP diastolic 43–70
[2019-09-13] MEDS: IPRATRPIUM/ALBUTEROL 0.5/2.5MG 3 ML NEBU. NEB SCH (05:02)
[2019-09-13] MEDS ORDERED: NOREPINEPHRINE BITARTRATE 4 MG/4 ML VIAL. IV ONE ×2 (05:49→05:51)
[2019-09-13] MEDS: NOREPINEPHRINE BITARTRATE 8 MG in IV DEXTROSE 5% 250 ML IV PRN (05:56)
--- NOTE | 2019-09-13 05:56 | PDOC ---
PROVIDER NOTE PROVIDER NOTE PROVIDER NOTE CARDIOLOGY CONSULTATION NOTE: (late entry for 09/12/2019) REASON FOR CONSULTATION: DYSPNEA HPI: 79 y.o woman with significant comorbidities presenting for dyspnea. She likely has an underlying infection. Cardiology asked to see her for her tachycardia and elevated troponin. SHe has been chronically ill. Discussed with family at bedside who is also considering hospice. Currently the patient is tachypneic and unable to answer may questions. PAST MEDICAL HISTORY: 1. PAF 2. CHF - unknown type 3. Anemia 4. RA 5. PF 6. Depression 7. R knee amputation 8. Sacral decub ulcers. FAMILY HISTORY: Noncontributory. SOCIAL HISTORY: She is a resident at [facility] [place]. She does not smoke, drink alcohol or use any recreational drugs. REVIEW OF SYSTEMS: As per history of present illness. ALL: REVIEWED current cardiac meds: Levophed gtt PHYSICAL EXAM: 79 y.o woman in poor health bilateral rhonchi soft abd R leg amputation tachycardic. regular heart sounds. Labs reviewed. EKG reviewed. Impression: 1. Septic shock 2. Presumed worsening of diastolic HF in the setting of sepsis, COPD RECS: 1. Unfortunately, due to her hypotension and severe pulmonary issues, aggressive fluid resuscitation may lead to need for intubation. Support with pressors and abx. 2. Agree with hospice consideration. 3. Trop elevation due to Type 2 NSTEMI 4. If decision made to continue full aggressive care after hospice discussion then will plan for echo. Thanks. ELIN VASQUEZ MD Sep 13, 2019 05:56
[2019-09-13] MEDS: IV DEXTROSE 5% 1,000 ML IV SCH ×2 (06:05→09:03)
--- NOTE | 2019-09-13 06:07 | NUR ---
Shift Note: Pt has been a/o x4, no c/o of pain or n/v at this time, irby intact and draining cloudy urine w/sediment, IV sites are patent with fluids infusing as ordered. Levophed at 0.2mcg/min to support BP. Wounds have been documented and photographed (in chart). Pt required suctioning one time during night. Turning patient to prevent further skin breakdown.
[2019-09-13 06:26] LABS: HEMATOCRIT 27.7 % (36.0-47.0); HEMOGLOBIN 8.4 g/dL (12.0-15.5); RED BLOOD COUNT 2.81 x10^6/uL (3.50-5.40); RED CELL DISTRIBUTION WIDTH 17.6 % (11.5-14.5); WHITE BLOOD COUNT 10.8 x10^3/uL (4.0-11.0)
[2019-09-13 06:40] LABS: ALBUMIN 1.9 g/dL (3.4-5.0); ALBUMIN/GLOBULIN RATIO 0.4 (1.0-1.7); CREATININE 1.1 mg/dL (0.6-1.0); GFR 47.8; TOTAL BILIRUBIN 0.4 mg/dL (0.2-1.0); TOTAL PROTEIN 6.5 g/dL (6.4-8.2)
--- NOTE | 2019-09-13 07:00 | NUR ---
Wound care Wound care consult for buttock wound. Pt has stage III PU to right buttock and right ischium. Cleansed wound, dressed right buttock with hydrocolloid and foam and right ischium with Xeroform and foam. Pt also has dry scabbed stasis ulcer that has been there for a long time. Painted area with Betadine. No other wounds noted, pt left on left side with heel floated. WC will continue to follow for possible changes.
[2019-09-13] MEDS: HYDROCORTISONE SOD SUCC/PF 100 MG/2 ML VIAL. IVP SCH ×2 (09:00→09:03)
[2019-09-13] MEDS: MEROPENEM 500 MG in IV NORMAL SALINE 50ML 50 ML IV SCH (09:03)
--- NOTE | 2019-09-13 09:21 | NUR ---
[facility] hospice and family here at this time to discuss plan of care. Patient remains on levophed gtt at 0.2mcg and IV Fluids and antibiotics for sepsis. Patient is alert and oriented at this time but is very tired. Continues to have difficulty breathing and clearing secretions, nurse suctioning secretions as needed.
--- NOTE | 2019-09-13 10:16 | NUR ---
Family and hospice discussed plan and would like to do inpatient hospice. Will notify phsyican to place comfort orders. Plan is to titrate off of Levophed gtt, discharge from ICU status and admit under [facility]osp[facility].
--- NOTE | 2019-09-13 10:59 | NUR ---
Bed bath given at this time, patient feels much more comfortable. Plan is to transfer to Room 117, report will given to Luiza AVINA. Family at bedside at this time.
--- NOTE | 2019-09-14 17:18 | DS ---
DATE OF DISCHARGE: 09/13/2019 HOSPITAL COURSE: The patient is an 79-year-old female patient[place] [facility] [place] came back again with another episode of severe sepsis, likely due to aspiration pneumonia versus urinary tract infection. Her lab work showed as marked leukocytosis. Her chemistry showed that she has acute kidney injury, hyperkalemia, and her blood gases showed that she has metabolic acidosis. Urinalysis consistent with severe urinary tract infection and was initially treated with IV Zosyn and vancomycin. However, I have had a discussion with the family regarding the goals of care and apparently the family, the patient and her sister agreed to go to do inpatient hospice for comfort and end of life care and was transferred to Room 117 to be under [facility] for inpatient hospice care. PHYSICAL EXAMINATION: GENERAL: On the day of discharge, the patient was slightly tachypneic and pale, but no jaundice, cyanosis or thyromegaly. No jugular venous distention. No limb edema. VITAL SIGNS: Her heart rate was 102, blood pressure was 101/56, temperature 97.6, respiratory rate was 31 and oxygen saturation was 95% on 2.5 liters of oxygen. HEAD, EYES, EARS, NOSE AND THROAT: Showed normocephalic, atraumatic. NECK: Supple. HEART: Showed normal first and second heart sounds. No gallop or murmur. CHEST: Showed central trachea. Equal reduced expansion, reduced air entry, vesicular breath sounds with bilateral crepitation. ABDOMEN: Distended, soft, nontender. NEUROLOGIC: She is very hard of hearing, but otherwise all cranial nerves intact. She has severe deforming rheumatoid arthritis, but she has right above knee amputation. LABORATORY DATA: Showed a white cell count of 10,800, hemoglobin 8.4, hematocrit 28, MCV 98 and platelet count 285,000. Her serum sodium was 138, potassium 5, chloride 108, bicarbonate 18, anion gap of 12, BUN 66, creatinine 1.1, and estimated GFR was 48 mL per minute. Her glucose was 129, calcium was 9. Total bilirubin, AST, ALT, alkaline phosphatase were normal. Total protein 6.5, albumin was 1.9. DISCHARGE MEDICATIONS: She was discharged to inpatient hospice care to continue on morphine, Ativan, and scopolamine as well as oxygen. FINAL DISCHARGE DIAGNOSES: Severe pulmonary fibrosis, severe deforming rheumatoid arthritis, acute on chronic diastolic congestive heart failure and sepsis due to aspiration pneumonia and urinary tract infection. JAYY SANTOS MD DR: SHWETA/yg JOB#: [id number] / [id number]
[2019-09-17 09:01] LABS: WHITE BLOOD COUNT 18.1 x10^3/uL (4.0-11.0)
== END 2019-09-13 11:07 | disposition hospice, inpatient (51) | DRG 871 ==
LOC: ER 11:06 → ICU 12:34
PROVIDERS: ADMIT Internal Medicine; ATTEND Internal Medicine
DX: A41.9 Sepsis, unspecified organism (principal); I50.33 Acute on chronic diastolic (congestive) heart failure; J69.0 Pneumonitis due to inhalation of food and vomit; R65.21 Severe sepsis with septic shock; N17.9 Acute kidney failure, unspecified; N39.0 Urinary tract infection, site not specified; E11.9 Type 2 diabetes mellitus without complications; E87.5 Hyperkalemia; I48.0 Paroxysmal atrial fibrillation; J44.9 Chronic obstructive pulmonary disease, unspecified; M06.9 Rheumatoid arthritis, unspecified; Y95 Nosocomial condition; F32.9 Major depressive disorder, single episode, unspecified; K21.9 Gastro-esophageal reflux disease without esophagitis; L89.159 Pressure ulcer of sacral region, unspecified stage; E86.0 Dehydration; Z51.5 Encounter for palliative care; Z86.72 Personal history of thrombophlebitis; Z87.442 Personal history of urinary calculi; Z89.611 Acquired absence of right leg above knee; Z98.41 Cataract extraction status, right eye; Z98.42 Cataract extraction status, left eye; Z86.718 Personal history of other venous thrombosis and embolism; Z88.1 Allergy status to other antibiotic agents; Z88.8 Allergy status to other drugs, medicaments and biological substances
CPT/HCPCS: 36415; 36600; 71045; 80048; 80053; 81001; 82803; 82947; 83605; 83880; 84484; 85007; 85025; 85027; 85610; 85730; 87040; 87070; 87086; 87186; 87205; 87804; 93005; 94640; 96365; J0610; J1940; J1956; J2020; J2185; J7613; J7620; 99291-25; J7030

== ENCOUNTER 2019-09-13 11:08 | Inpatient (IN) | payer OTHER ==
[~2019-09-13 11:08] MED LIST changes: +ACET325T21 PO; +AMIN30LI2 PO; +ASCO500C PO; +CHOL3000 PO; +CINA30TA2 PO; +CYAN10002 IM; +CYPR4TAB31 PO; +EPOGEN10000 UNIT IJ; +FURO40TA4 PO; +GUAI-105 PO; +IPRA3AMP29 NEB; +LACT1CAP6 PO; +MAG355OR11 PO; +MIDO5TAB4 PO; +ONDA4TAB7 PO; +PHEN20SP MM; +PRED5TAB PO; +SENN8.8S5 PO; +potassium chloride PO
[2019-09-13] MEDS ORDERED: BISACODYL 10 MG SUPP.RECT PR PRN (11:45)
[2019-09-13] MEDS ORDERED: ACETAMINOPHEN 650 MG SUPP.RECT. PR PRN (11:45)
[2019-09-13] MEDS ORDERED: SCOPOLAMINE 1.5MG PATCH. TD SCH (12:00)
[2019-09-13] MEDS: MORPHINE SULFATE 2 MG/ML DISP.SYRIN. IV PRN ×3 (12:19→21:46)
[2019-09-13 15:03] VITALS: BP 79/46
[2019-09-14 04:46] VITALS: BP 62/47
[2019-09-14] MEDS: MORPHINE SULFATE 2 MG/ML DISP.SYRIN. IV PRN ×4 (10:13→22:18)
--- NOTE | 2019-09-14 16:05 | HP ---
ADMIT DATE: 09/14/2019 HISTORY OF PRESENT ILLNESS: The patient is an 79-year-old female patient who was a resident at [facility] [place] who was admitted with another episode of severe sepsis, probably due to aspiration pneumonia and urinary tract infection. She has severe pulmonary fibrosis, advanced deforming rheumatoid arthritis. She is also known to have chronic obstructive pulmonary disease, congestive heart failure, anemia, dysphagia, gastroesophageal reflux disease, severe bilateral sensorineural deafness, history of osteomyelitis, osteoporosis, incontinence and generalized weakness. She was admitted with acute on chronic diastolic congestive heart failure, sepsis and given that she has this multiple times, we have had a discussion with her and her sister and they both agreed to go for inpatient hospice care and was admitted under [facility]. PHYSICAL EXAMINATION: GENERAL: When I saw her today, she was resting slightly propped up in bed, in no apparent respiratory distress. She denied any complaint. When I examined her, she was pale, but no jaundice, cyanosis or thyromegaly. No jugular venous distention. No limb edema. VITAL SIGNS: Her heart rate was 105, blood pressure was 62/47, temperature was 98.3, respiratory rate 20, and oxygen saturation was 95%. The rest of clinical examination is stable. ASSESSMENT: Sepsis multifactorial due to aspiration pneumonia and urinary tract infection, acute on chronic diastolic congestive heart failure, chronic pulmonary fibrosis, severe advanced deforming rheumatoid arthritis, chronic obstructive pulmonary disease. Plan is to continue with comfort care including Roxanol, Ativan as well as scopolamine and Tylenol. JAYY SANTOS MD DR: SHWETA/yg JOB#: [id number] / [id number]
[2019-09-14 17:24] VITALS: BP 96/64
[2019-09-14 20:38] VITALS: BP 93/58
[2019-09-15] MEDS: MORPHINE SULFATE 2 MG/ML DISP.SYRIN. IV PRN ×2 (05:49→11:26)
[2019-09-15 10:35] VITALS: BP 88/53
[2019-09-15] MEDS: MORPHINE SULFATE 2 MG/ML DISP.SYRIN. IV SCH ×5 (15:53→22:02)
[2019-09-15 20:25] VITALS: BP 112/66
[2019-09-16] MEDS: MORPHINE SULFATE 2 MG/ML DISP.SYRIN. IV SCH ×2 (00:25→02:02)
--- NOTE | 2019-09-16 00:50 | PN ---
DATE: 09/15/2019 SUBJECTIVE: The patient is resting, slightly propped up in bed; continues to complain of discomfort in her lower back and also shortness of breath. She continues to have recurrent bouts of cough with thick sputum. She is clearly tachypneic. PHYSICAL EXAMINATION: GENERAL: When I examined her, she looked pale. No jaundice, cyanosis or thyromegaly. No jugular venous distention. No lower limb edema. VITAL SIGNS: Her heart rate was 81, blood pressure was 88/53, temperature 98.2, respiratory rate was 30 and oxygen saturation was 97% on 2 liters of oxygen. The rest of clinical exam is stable. ASSESSMENT: 1. Sepsis, multifactorial due to: A. Aspiration pneumonia. B. Urinary tract infection. 2. [id number] diastolic congestive heart failure. 3. Idiopathic pulmonary fibrosis. 4. Severe deforming rheumatoid arthritis. 5. Chronic obstructive pulmonary disease. PLAN: To continue with comfort care with Roxanol, Ativan, scopolamine and Tylenol. JAYY SANTOS MD DR: SHWETA/yg JOB#: [id number] / [id number]
--- NOTE | 2019-10-11 11:12 | DS ---
DATE OF DISCHARGE: 09/16/2019 HOSPITAL COURSE: The patient is an 79-year-old female patient, a resident at [facility], who was admitted yet again with another episode of severe sepsis due to aspiration pneumonia and urinary tract infection. The patient also has severe pulmonary fibrosis, advanced deforming rheumatoid arthritis as well as chronic obstructive pulmonary disease. We have had a lengthy discussion with the patient and her sister and basically she was admitted for inpatient hospice, was continued on Roxanol and Ativan as well as scopolamine. The patient continued to deteriorate slowly and the patient was evaluated by 2 RNs and basically the patient has no palpable pulses. No audible heart sounds. No spontaneous breathing and she was pronounced at around 2:45 on 09/16/2019. CAUSE OF : Cardiopulmonary arrest, acute on chronic respiratory failure, aspiration pneumonia, chronic obstructive pulmonary disease, and idiopathic pulmonary fibrosis as well as chronic deforming rheumatoid arthritis. JAYY SANTOS MD DR: [id number]/yg JOB#: [id number] / [id number]
== END 2019-09-16 05:40 | disposition expired | DRG 871 ==
LOC: 1 SOUTH 11:08
PROVIDERS: ADMIT Internal Medicine; ATTEND Internal Medicine
DX: A41.9 Sepsis, unspecified organism (principal); J69.0 Pneumonitis due to inhalation of food and vomit; I50.33 Acute on chronic diastolic (congestive) heart failure; J96.20 Acute and chronic respiratory failure, unspecified whether with hypoxia or hypercapnia; N39.0 Urinary tract infection, site not specified; J84.112 Idiopathic pulmonary fibrosis; J44.9 Chronic obstructive pulmonary disease, unspecified; R65.20 Severe sepsis without septic shock; Z51.5 Encounter for palliative care; R13.10 Dysphagia, unspecified; M81.0 Age-related osteoporosis without current pathological fracture; K21.9 Gastro-esophageal reflux disease without esophagitis; H90.5 Unspecified sensorineural hearing loss; I46.9 Cardiac arrest, cause unspecified; M06.80 Other specified rheumatoid arthritis, unspecified site
CPT/HCPCS: J2060; J2270; Q5005